=== PATIENT | male | born 1965 | race Caucasian/White ===

== ENCOUNTER 2020-09-07 07:19 | Outpatient (CLI) | payer BC, SELFPAY ==
--- NOTE | ~2020-09-07 | CT_ITS ---
EXAMINATION: CT abdomen pelvis w con DATE: 09/07/2020 08:17 INDICATION: Prostate cancer. TECHNIQUE: Computed tomography (CT) of the abdomen and pelvis was performed with 100 mL Omnipaque 350 intravenous contrast. Automated exposure control and iterative reconstruction technique were employe d. The dose-length product was 1366.92 mGy-cm. COMPARISON: None. FINDINGS: The visualized portions of the lung bases demonstrates mild atelectasis. There is a 6 mm no dule at minor fissure, likely benign. No pleural effusion. The heart size is normal. No pericardial e ffusion. There is a small sliding hiatal hernia. The liver, gallbladder, spleen, pancreas, adrenal gl ands, and right kidney are normal. There is a 1.5 cm cyst in left kidney. There is diffuse bladder wa ll thickening, likely secondary to chronic outlet obstruction from the moderately enlarged prostate. There is a left inguinal hernia containing fat. There are no dilated loops of bowel. The appendix is normal. There are no pathologically enlarged lymph nodes. There is no free intraperitoneal fluid. The re is a benign bone island in left ilium. There is moderate lumbar spondylosis. IMPRESSION: 1. No evidence of metastatic disease. Reviewed, dictated and finalized at location A.
--- NOTE | ~2020-09-07 | NM_ITS ---
EXAMINATION: NM bone scan whole body DATE: 09/07/2020 11:00 INDICATION: Prostate cancer TECHNIQUE: 25.3 mCi Tc-99m HDP was administered intravenously. Delayed whole-body scintigrams were o btained. COMPARISON: CT abdomen and pelvis dated 09/07/2020 FINDINGS: Small foci of mild likely degenerative uptake at the bilateral patellae. Mild upper thoracic dextrocu rvature. Otherwise normal distribution of bone and soft tissue uptake. IMPRESSION: 1. No evident metastatic disease. Reviewed, dictated and finalized at location A.
[2020-09-07 08:10] LABS: Estimated Glomerular Filt Rate 57
== END 2020-09-07 07:20 | disposition home or self-care (01) ==
LOC: ANHIMG 07:21
PROVIDERS: PCP Family Medicine; Visit Provider Urology
DX: C61 Malignant neoplasm of prostate (principal)
CPT/HCPCS: 74177; 78306; A9561; Q9967

== ENCOUNTER 2020-10-07 09:59 | Outpatient (CLI) | payer BC, SELFPAY ==
--- NOTE | 2020-10-07 10:40 | ECG_ITS ---
Measurements Intervals [place] Rate: 60 P: 27 OK: 170 QRS: -8 QRSD: 97 T: 35 QT: 398 QTc: 399 Interpretive Statements SINUS RHYTHM DELAYED PRECORDIAL R/S TRANSITION BORDERLINE ECG Electronically Signed On 10-07-2020 13:12:56 INTERN BRAND by Sumeet Wilder D.O.
[2020-10-07 11:11] LABS: Basophils Absolute Auto 0.1 K/mm3 (0.0-0.1); Basophils Percent Auto 0.9 % (0.2-1.2); Eosinophils Absolute Auto 0.4 K/mm3 (0-0.3); Eosinophils Percent Auto 5.8 % (0-4.4); Hematocrit 50.6 % (42.0-52.0); Hemoglobin 16.8 g/dL (14.0-18.0); Immature Granulocyte Absolute 0.04 K/mm3 (0.00-0.031); Immature Granulocyte Percent A 0.6 % (0-0.5); Lymphocytes Absolute Auto 2.33 K/mm3 (0.9-3.2); Lymphocytes Percent Auto 35.7 % (18.3-44.2); Mean Corpuscular HGB Conc 33.2 g/dl (32-36); Mean Corpuscular Hemoglobin 29.2 pg (26-34); Mean Corpuscular Volume 87.8 fl (80-100); Mean Platelet Volume 10.5 fl (7.4-10.4); Monocytes Absolute Auto 0.8 K/mm3 (0.1-0.6); Monocytes Percent Auto 11.5 % (2.6-8.5); Neutrophils Percent Auto 45.5 % (45.5-73.1); Platelet Count Result 249 k/mm3 (150-375); Red Blood Count 5.76 M/mm3 (4.6-6.20); Red Cell Distribution Width 13.5 % (11.5-14.5); White Blood Count 6.5 K/mm3 (4.5-10.0)
[2020-10-07 11:17] LABS: INR 0.9; Partial Thromboplastin Time 26.4 SECONDS (22.3-36.8); Prothrombin Time 12.5 Seconds (11.1-14.7)
[2020-10-07 11:20] LABS: Alanine Aminotransferase 21 U/L (4-50); Albumin Level 4.3 g/dL (3.5-5.1); Alkaline Phosphatase 62 U/L (38-126); Anion Gap 7 mmol/L (8-16); Aspartate Amino Transferase 22 U/L (17-59); Bilirubin,Total 0.7 mg/dL (0.2-1.3); Blood Urea Nitrogen 26 mg/dL (9-20); Calcium 9.1 mg/dL (8.4-10.2); Carbon Dioxide 29 mmol/L (22-30); Chloride 103 mmol/L (98-107); Estimated Glomerular Filt Rate > 60; Glucose 115 mg/dL (75-110); Potassium 4.3 mmol/L (3.4-5.0); Sodium 139 mmol/L (137-145)
== END 2020-10-07 10:00 | disposition home or self-care (01) ==
LOC: ANHSURGERY 10:01
PROVIDERS: PCP Family Medicine; Visit Provider Urology
DX: Z01.818 Encounter for other preprocedural examination (principal); I10 Essential (primary) hypertension; C61 Malignant neoplasm of prostate
CPT/HCPCS: 36415; 80053; 85025; 85610; 85730; 87086; 93005

== ENCOUNTER 2020-10-17 01:17 | Outpatient (CLI) | payer BC, SELFPAY ==
[2020-10-17 18:31] LABS: SARS-CoV-2 RNA PCR Negative
== END 2020-10-17 01:18 | disposition home or self-care (01) ==
LOC: ANHCOVIDDT 01:17
PROVIDERS: PCP Family Medicine; Visit Provider Urology
DX: Z01.812 Encounter for preprocedural laboratory examination (principal); Z20.828 Contact with and (suspected) exposure to other viral communicable diseases
CPT/HCPCS: 87635; C9803; U0003

== ENCOUNTER 2020-10-20 13:14 | Inpatient (IN) | payer BC, SELFPAY ==
[2020-10-07 10:40] VITALS: BP 125/71; PULSE 60; RESP 16; TEMP 36.8; O2SAT 97; BMI 30.3
--- NOTE | 2020-10-12 15:44 | PC.NURSE ---
STATES NO CHANGE IN HEALTH HX SINCE LAST INTERVIEW ON 10/05/20. NEW DATE AND TIME GIVEN
[2020-10-20] VITALS (14 sets, daily range): BP systolic 105–148; BP diastolic 61–95; PULSE 42–89; RESP 10–20; TEMP 36.3–37.4; O2SAT 94–97
[2020-10-20] MEDS: LACTATED RINGERS 1,000 ML 30 ML IV CONT ×2 (06:30→13:29)
--- NOTE | 2020-10-20 06:49 | WPDANESEPPF ---
Anes - Initial Pre Proc Eval Procedure: Operation Date: 10/20/20 07:30 Proposed Procedures p Robotic Assisted Nerve Sparing Prostatectomy, Possible Pelvic Lymph Node Dissection - Kev Pandey MD Date/Time: 10/20/20 06:49 Surgeon: Kev Pandey MD Pre Op Diagnosis: Prostate CA Patient Data Age: 55 Gender: M Height: 6 ft 4 in Weight: 114.5 kg Last Vital Signs Temp 36.8 C 10/07/20 10:40 Pulse 60 10/07/20 10:40 Resp 16 10/07/20 10:40 BP 125/71 10/07/20 10:40 Pulse Ox 97 10/07/20 10:40 Allergies Allergy/AdvReac Type Severity Reaction Status Date / Time No Known Allergies Allergy Unverified 10/20/20 06:22 Home Medications Medication Instructions Recorded Confirmed Type atenolol 50 mg PO BID 09/27/19 10/20/20 History Patient hx anesthesia problems: none Family hx anesthesia problems: none PMFSH Past Medical History Medical History (Updated 10/20/20 @ 06:50 by Alf Jacobson MD) HTN (hypertension) Obesity Surgical History Surgical History (Updated 10/20/20 @ 06:50 by Alf Jacobson MD) H/O cervical spine surgery H/O rhinoplasty Social History Social History Smoking status: Never smoker Alcohol intake: current Alcohol use details: 3 DRINKS PER MONTH Living arrangements: with family Spiritual care concerns: No Anes - Eval Final PreProcedure Day of Procedure 10/20/20 06:49 Patient weight: obese Heart: regular rate and rhythm Lungs: clear to auscultation Airway: Mallampati scale class II Neurological: alert and oriented Last oral intake: >/= 8 hours ASA classification: II Emergent: no Anesthetic plan: proceed Anesthesia type and monitoring: general ETT and standard monitoring Informed Consent: The patient's anesthetic plan and its attendant risks and benefits were discussed with the patient/family/POA. Questions were solicited and answers provided to the satisfaction of the patient/family/POA.
--- NOTE | 2020-10-20 07:04 | WPDHPUPDATE1 ---
History and Physical Update Update Date/Time: 10/20/20 07:04 History and Physical has been reviewed, including an updated exam of the patient. There are NO changes in the patient's condition. Risks, benefits, and alternatives have been discussed and questions answered. Patient agrees to proceed with procedure. Proceed with robotic assist nerve sparing prostatecomy with possible bilateral pelvic lymph node dissection
[2020-10-20] MEDS: ceFAZolin 2 GM/D5W 50 ML 2 GM/50 ML BAG IVPB (07:34)
[2020-10-20] MEDS: BUPIVACAINE HCL 0.5% PF 30 ML VIAL INFILTRATE (08:15)
[2020-10-20] MEDS: ceFAZolin SODIUM 1 GM VIAL IV PUSH (11:31)
--- NOTE | 2020-10-20 13:10 | P.OP_ITS ---
Procedure Note - Detailed Date of procedure: 10/20/20 Pre-op diagnosis: Prostate CA Post-op diagnosis: same (Significant adhesions) Procedure performed: Adhesiolysis, robotic assisted nerve-sparing prostatectomy with bilateral pelvic lymphadenectomy Description of procedure: Patient is taken to the operative suite correctly identified. Once anesthesia was obtained was placed in dorsal lithotomy position prepped and draped in sterile fashion. Eighteen [place] Ventura 20 cc in the balloon was placed. Supraumbilical incision was made carried down to the rectus fascia. Veress needle was inserted. The abdomen was insufflated 15 mmHg pressure. Camera port trocar was placed in direct vision. Appropriate ports were then placed. Patient was placed in steep Trendelenburg position and the robot was docked. Patient had significant amount of adhesions along the left pelvic floor as well as the right side. These were taken down took probably another 15-30 minutes to accomplish. We then did a posterior approach. The seminal vesicles appeared to be somewhat stuck. We were able to dissect them out in their entirety however. He was very vascular. The vas were transected. Bladder was then taken down space of Retzius was developed. Puboprostatic were then taken down also. Dorsal venous complex was isolated using an 0 Vicryl secured to the pubic bone. Anterior bladder neck was then opened to expose the Ventura catheter. Posterior bladder neck was also transected. There was a bladder neck sparing procedure performed. The seminal vesicles and vas were then brought out. Bilateral nerve-sparing was performed. Pedicles were clipped. Prostate was lifted off the rectum. Dorsal venous complex was then transected. Urethra was also transected. Specimen was placed in Endo-Catch bag. Bilateral pelvic lymphadenectomies were performed. Boundaries being the Lex's ligament, external iliac vein, bifurcation of the vessels, and obturator nerve. Clips were placed proximally and distally. These were also placed in an Endo-Catch bag. The left pelvic lymph nodes were identified using a clip. We then approximated the bladder neck to the urethral stump. This was accomplished using V lock suture in a running fashion. There was a good [id number] approximation. Eighteen [place] Ventura had been placed inflated with 10 cc sterile water. We a fill the bladder with 200 cc of normal saline there was no evidence of extravasation at this time. Pablito drain was then placed through the 3rd arm approach side. This was secured. Robot was undocked. Lap count needle count sponge counts were correct. The Endo-Catch bag was then brought out through the suprapubic incision. Rectus fascia was closed using 0 Vicryl running fashion. Subcuticular stitches were then placed. Patient is taken recovery room stable condition. Anesthesia: GETA Surgeon: Kev Pandey MD Estimated blood loss (mL): 50 Drains: Yes Packing: No Pathology: yes Complications: No immediate complications Condition: stable Disposition: PACU
[2020-10-20] MEDS: HYDROmorphone HCL INJ (*CRX) 1 MG/ML SYR 0.5 MG IV PUSH ×2 (13:58→14:20)
--- NOTE | 2020-10-20 14:49 | ADMGEN ---
This patient, [address], was admitted to 2 Medical Room 242-. Patient/family oriented to hospital policies and general routines including ID bracelet, bed and alarms, visiting hours, pain management, procedures, bathroom and other care routines, personal items, smoking policy, room service/diet, and visiting hours. Information on how to activate the Rapid Response Team has been discussed. Patient/Family are encouraged to report perceived risks to care and to ask questions if they do not understand what they are told or what they should do.
[2020-10-20] MEDS: LACTATED RINGERS 1,000 ML 125 ML IV CONT ×2 (15:07→23:08)
[2020-10-20] MEDS: KETOROLAC 30 MG/ML VIAL (*BKC) IV PUSH ×2 (15:07→21:14)
[2020-10-20] MEDS: ACETAMINOPHEN 500 MG TABLET 1000 MG PO (17:36)
[2020-10-20] MEDS: DOCUSATE SODIUM 100 MG CAPSULE PO (17:37)
[2020-10-21] VITALS (7 sets, daily range): BP systolic 106–138; BP diastolic 60–89; PULSE 71–76; RESP 17–20; TEMP 36.4–37.4; O2SAT 95–97
[2020-10-21] MEDS: KETOROLAC 30 MG/ML VIAL (*BKC) IV PUSH (03:48)
[2020-10-21 05:43] LABS: Hematocrit 41.4 % (42.0-52.0); Hemoglobin 13.8 g/dL (14.0-18.0)
[2020-10-21] MEDS: MORPHINE SULFATE (*CRX) 2 MG/ML INJ 1 MG IV PUSH (05:45)
[2020-10-21 05:54] LABS: Anion Gap 2 mmol/L (8-16); Blood Urea Nitrogen 22 mg/dL (9-20); Calcium 7.9 mg/dL (8.4-10.2); Carbon Dioxide 32 mmol/L (22-30); Chloride 101 mmol/L (98-107); Estimated CRCL calculation 92 ml/min; Estimated Glomerular Filt Rate > 60; Glucose 111 mg/dL (75-110); Potassium 3.7 mmol/L (3.4-5.0); Sodium 135 mmol/L (137-145)
[2020-10-21] MEDS: LACTATED RINGERS 1,000 ML 125 ML IV CONT ×3 (07:30→22:04)
[2020-10-21] MEDS: DOCUSATE SODIUM 100 MG CAPSULE PO ×2 (08:26→16:49)
[2020-10-21] MEDS: ACETAMINOPHEN 500 MG TABLET 1000 MG PO ×2 (08:35→22:08)
--- NOTE | 2020-10-21 11:20 | WPDANESPN ---
Anes - Prog Note Post-Op Date/Time: 10/21/20 11:20 Cardiovascular status: normal Respiratory status: normal Airway patency: baseline Mental status: baseline Post-Op hydration status: normal Vital Signs: Last Vital Signs Temp 37.2 C 10/21/20 06:45 Pulse 71 10/21/20 06:45 Resp 20 10/21/20 06:45 BP 116/60 10/21/20 06:45 Pulse Ox 97 10/21/20 06:45 Pain Score (VAS): 5 I/O: Intake & Output 10/20/20 10/21/20 10/21/20 23:59 07:59 15:59 Intake Total 1930 1390 480 Output Total 400 860 Balance 1530 530 480 Laboratory Tests 10/21/20 05:04 10/21/20 05:04 10/21/20 10/21/20 05:04 05:04 Hgb 13.8 L D Hct 41.4 L Sodium 135 L Potassium 3.7 Chloride 101 Carbon Dioxide 32 H Anion Gap 2 L BUN 22 H Creatinine 1.10 Estim Creat Clear Calc 92 Estimated GFR > 60 Glucose 111 H Calcium 7.9 L Post-procedural complaints: none Patient Feedback: Patient satisfied with anesthetic care.
[2020-10-21] MEDS: HYDROcodone/acetaminophen (*CRX) 5-325 MG TABLET 1 TAB PO (12:04)
--- NOTE | 2020-10-21 13:37 | WPDUROPN2 ---
Progress Note: A&P Assessment and Plan (1) Prostate cancer: Code(s): C61 - Malignant neoplasm of prostate Status: Acute Assessment and Plan: Plan to keep overnight for pain control. Encourage activity. Will plan to discharge home tomorrow as long as he is better, if BERNADETTE drain is decreasing in output, will remove tomorrow. Ventura will remain in for 10 days total until cystogram. Subjective Subjective Date/Time Seen: 10/21/20 13:37 POD #1 Adhesiolysis, robotic assisted nerve-sparing prostatectomy with bilateral pelvic lymphadenectomy Pain control remains an issue for him. He is otherwise doing well, but c/o constipation. Review of Systems Cardiovascular: Cardiovascular: Reports no additional cardiovascular complaints Respiratory: Respiratory: Reports no additional respiratory complaints Gastrointestinal: Gastrointestinal: Reports abdominal pain (at incisons), Denies nausea and Denies vomiting Genitourinary: Genitourinary: Denies hematuria and Denies flank pain Exam Resp: Effort & Inspection: normal respiratory effort Cardio: Rate: regular rate GI: Inspection: incision (BERNADETTE drain, draining bloody drainage, no edema) GI Palp: Yes Soft to palpation and Yes Tenderness to palpation present (GI) (At incisions, no drainage from incisions, well approximated) : General: Yes no CVA tenderness Urinary Catheter: Urinary Catheter: patent and draining and urine clear Extrem: General: no edema Objective Data Vital Signs Vital Signs: Vital Signs - 24 hr 10/20/20 13:40 10/20/20 13:55 10/20/20 14:10 Temperature Pulse Rate 89 81 77 Respiratory Rate 12 14 12 Blood Pressure 146/90 H 148/93 H 138/82 Pulse Oximetry 96 97 95 10/20/20 14:25 10/20/20 14:53 10/20/20 14:59 Temperature 98.0 F 98.2 F Pulse Rate 76 76 82 Respiratory Rate 10 L 16 18 Blood Pressure 137/84 143/77 H 146/81 H Pulse Oximetry 97 96 97 10/20/20 15:15 10/20/20 15:17 10/20/20 18:00 Temperature 98.1 F 98.8 F Pulse Rate 85 86 Respiratory Rate 18 18 Blood Pressure 127/78 105/67 Pulse Oximetry 95 96 94 10/20/20 18:59 10/20/20 22:59 10/20/20 23:43 Temperature 99.4 F 99.4 F 99.2 F Pulse Rate 42 L 76 Respiratory Rate 20 20 Blood Pressure 112/61 112/61 Pulse Oximetry 94 94 10/21/20 02:59 10/21/20 06:45 10/21/20 10:59 Temperature 99.0 F 99 F 97.6 F Pulse Rate 71 71 76 Respiratory Rate 20 20 17 Blood Pressure 116/60 116/60 108/74 Pulse Oximetry 97 97 97 Intake/Output Intake/Output: Intake & Output 10/18/20 10/19/20 10/20/20 10/21/20 23:59 23:59 23:59 23:59 Intake Total 2180 1870 Output Total 520 860 Balance 1660 1010 Meds/Results Medications: Active Medications Generic Name Dose Route Start Last Admin Trade Name Freq PRN Reason Stop Dose Admin Acetaminophen 1,000 mg 10/20/20 15:55 10/21/20 08:35 Acetaminophen 500 Mg Tablet PO 1,000 mg Q6H PRN Administration Mild Pain (1-3) or Fever Hydrocodone Bitart/Acetaminophen 1 tab 10/21/20 10:57 10/21/20 12:04 Hydrocodone/Acetaminophen (*Crx) 5-325 Mg Tablet PO 1 tab Q6H PRN Administration Pain Rated 7-10 Atenolol 50 mg 10/21/20 11:55 Atenolol 50 Mg Tablet PO Q12HR [facility] Docusate Sodium 100 mg 10/20/20 17:00 10/21/20 08:26 Docusate Sodium 100 Mg Capsule PO 100 mg BID VIVIENNE Administration Hyoscyamine 0.125 mg 10/20/20 14:31 Hyoscyamine Sulfate 0.125 Mg Tablet SUBLINGUAL Q4H PRN Bladder Spasm Lactated Ringer's 1,000 mls @ 125 mls/hr 10/20/20 13:15 10/21/20 07:30 Lr - Lactated Ringers Iv IV CONT 125 mls/hr .Q8H VIVIENNE Administration Ketorolac Tromethamine 30 mg 10/20/20 14:31 10/21/20 03:48 Ketorolac 30 Mg/Ml Vial (*Bkc) IV PUSH 10/21/20 14:32 30 mg Q6H PRN Administration Pain Rated 4-6 Levofloxacin 500 mg 10/21/20 09:00 10/21/20 08:27 Levofloxacin Tab 500 Mg Tablet PO 500 mg DAILY VIVIENNE Administration Naloxone HCl 0.1 mg 10/20/20 13:14
[2020-10-21] MEDS: atenoloL 50 MG TABLET PO ×2 (14:46→22:00)
[2020-10-21] MEDS: HYOSCYAMINE SULFATE 0.125 MG TABLET SUBLINGUAL (18:48)
[2020-10-22 04:00] VITALS: BP 141/77; PULSE 81; RESP 18; TEMP 37.2; O2SAT 94
[2020-10-22] MEDS: ACETAMINOPHEN 500 MG TABLET 1000 MG PO (06:19)
[2020-10-22] MEDS: LACTATED RINGERS 1,000 ML 125 ML IV CONT (06:23)
[2020-10-22 08:28] VITALS: PULSE 81
[2020-10-22] MEDS: atenoloL 50 MG TABLET PO (08:28)
[2020-10-22] MEDS: DOCUSATE SODIUM 100 MG CAPSULE PO (08:28)
--- NOTE | 2020-10-22 09:00 | WPDUROPN2 ---
Progress Note: A&P Assessment and Plan (1) Prostate cancer: Code(s): C61 - Malignant neoplasm of prostate Status: Acute Assessment and Plan: Patient is much improved today, he will go home with vega catheter. His BERNADETTE drain will be removed prior to discharge. Subjective Subjective Date/Time Seen: 10/22/20 09:00 POD #2 Adhesiolysis, robotic assisted nerve-sparing prostatectomy with bilateral pelvic lymphadenectomy Pain is under great control today, he rates it as a 2. He is up in the chair and looks much better. He is otherwise doing well, but c/o constipation,but passing flatus. Review of Systems Cardiovascular: Cardiovascular: Denies chest pain Respiratory: Respiratory: Reports no additional respiratory complaints Gastrointestinal: Gastrointestinal: Reports abdominal pain (improved), Denies nausea and Denies vomiting Genitourinary: Genitourinary: Denies hematuria Exam Resp: Effort & Inspection: normal respiratory effort Cardio: Rate: regular rate GI: Inspection: incision (well approximated, no drainage or edema present, BERNADETTE draining bloody drainag) GI Palp: Yes abdominal tenderness (at incision sites only), Yes Soft to palpation and No Firmness to palpation present (GI) : Meatus: Blood at meatus present (old blood around vega.) Urinary Catheter: Urinary Catheter: patent and draining and urine clear Extrem: General: no edema Objective Data Vital Signs Vital Signs: Vital Signs - 24 hr 10/21/20 10:59 10/21/20 14:46 10/21/20 14:59 Temperature 97.6 F 97.5 F L Pulse Rate 76 76 76 Respiratory Rate 17 18 Blood Pressure 108/74 106/89 Pulse Oximetry 97 97 10/21/20 20:00 10/21/20 22:00 10/22/20 04:00 Temperature 99.3 F 98.9 F Pulse Rate 76 76 81 Respiratory Rate 20 18 Blood Pressure 138/76 141/77 H Pulse Oximetry 95 94 10/22/20 08:28 Temperature Pulse Rate 81 Respiratory Rate Blood Pressure Pulse Oximetry Intake/Output Intake/Output: Intake & Output 10/19/20 10/20/20 10/21/20 10/22/20 23:59 23:59 23:59 23:59 Intake Total 2180 5450 1000 Output Total 520 3550 40 Balance 1660 1900 960 Meds/Results Medications: Active Medications Generic Name Dose Route Start Last Admin Trade Name Freq PRN Reason Stop Dose Admin Acetaminophen 1,000 mg 10/20/20 15:55 10/22/20 06:19 Acetaminophen 500 Mg Tablet PO 1,000 mg Q6H PRN Administration Mild Pain (1-3) or Fever Hydrocodone Bitart/Acetaminophen 1 tab 10/21/20 10:57 10/21/20 12:04 Hydrocodone/Acetaminophen (*Crx) 5-325 Mg Tablet PO 1 tab Q6H PRN Administration Pain Rated 7-10 Atenolol 50 mg 10/21/20 11:55 10/22/20 08:28 Atenolol 50 Mg Tablet PO 50 mg Q12HR VIVIENNE Administration Docusate Sodium 100 mg 10/20/20 17:00 10/22/20 08:28 Docusate Sodium 100 Mg Capsule PO 100 mg BID VIVIENNE Administration Hyoscyamine 0.125 mg 10/20/20 14:31 10/21/20 18:48 Hyoscyamine Sulfate 0.125 Mg Tablet SUBLINGUAL 0.125 mg Q4H PRN Administration Bladder Spasm Lactated Ringer's 1,000 mls @ 125 mls/hr 10/20/20 13:15 10/22/20 06:23 Lr - Lactated Ringers Iv IV CONT 125 mls/hr .Q8H VIVIENNE Administration Levofloxacin 500 mg 10/21/20 09:00 10/22/20 08:28 Levofloxacin Tab 500 Mg Tablet PO 500 mg DAILY VIVIENNE Administration Naloxone HCl 0.1 mg 10/20/20 13:14 Naloxone Hcl 0.4 Mg/Ml Vial IV PUSH Q2M PRN Opiate Reversal Ondansetron HCl 4 mg 10/20/20 13:14 Ondansetron Inj 4 Mg/2 Ml Vial IV PUSH Q6H PRN Nausea And Vomiting
--- NOTE | 2020-10-22 09:08 | P.DS_ITS ---
DS: Admitting Diagnosis Admitting Diagnosis Admitting Diagnosis: Prostate CA DS: Summary Time Spent with Patient Time attestation: Pre-Op Diagnosis: Prostate Cancer Post - Op Diagnosis: Prostate Cancer Patient underwent the following procedure: Adhesiolysis, robotic assisted nerve- sparing prostatectomy with bilateral pelvic lymphadenectomy, on 10/20/[address] Pandey. He tolerated the procedure well, then went to Recovery in stable condition and to the floor for further observation. He had difficulty managing pain on his first post operative day, however this morning his pain has improved greatly, he is increasing his activity and tolerating diet. He will go home with diet as tolerated, activity no straining, resume home medications and start Bactrim daily, Hydrocodone for pain PRN, Colace to prevent constipation and Levsin for bladder spasms PRN. He will have his drain removed and go home with his vega until after his Cystogram next week. DS: Data Data Completed and Pending Pending studies at discharge: Pending at discharge 10/20/20 11:46 Surgical [PTH] Routine Discharge Plan Discharge Attending physician on discharge: Kev Pandey Discharging Clinician: Lori Harrison Anticipated Discharge Date/Time: 10/22/20 09:04 Patient Disposition: Home, Self-Care Activity: may shower, no straining and may drive after 2 weeks Diet: as tolerated Wound Care Instructions: change dressing daily and incision open to air Discharge Instructions: Change drain site dressing daily and PRN if draining bloody drainage. Follow up for Cystogram on 10/28/2020 at 9am, arrive at 8:30am. Then come to the office immediately after for vega removal as long as cystogram is normal. Call if you develop a fever >102, urine turns bloody, cloudy or develops an odor, if incisions are red, painful or draining. Patient Instructions: Antibiotic Form Stand Alone Forms: General Discharge Information Follow-up/Referrals: Kev Pandey MD [Physician] - Discharge Medications: New docusate sodium 100 mg Capsule 100 mg PO BID Qty: 20 RF: 0 hydrocodone-acetaminophen 5-325 mg Tablet 1 tab PO Q6H PRN (Reason: Pain Rated 7-10) 5 Days Qty: 20 RF: 0 hyoscyamine sulfate [Anaspaz] 0.125 mg Tablet,Disintegrating 0.125 mg sublingual Q4H PRN (Reason: Bladder Spasm) 5 Days Qty: 20 RF: 0 sulfamethoxazole-trimethoprim [Bactrim DS] 800-160 mg tablet 1 tablet PO DAILY Qty: 7 RF: 0 Continued atenolol 50 mg Tablet 50 mg PO BID RF: 0 Date of admission: 10/20/20 13:14 Primary Care Provider: Phylicia,Brennon Meza Admitting Provider: Kev Pandey Attending physician on admission: Kev Pandey
== END 2020-10-22 11:40 | disposition home or self-care (01) | DRG 708 ==
LOC: ANH2MED 10-22 09:08
PROVIDERS: Admitting Provider Urology; PCP Family Medicine; Visit Provider Nurse Practitioner Adult Health
PROC: 0VT04ZZ Resection of Prostate, Percutaneous Endoscopic Approach (ICD-10-PCS; CPT 55867; principal; 2020-10-20 07:30)
DX: C61 Malignant neoplasm of prostate (principal); I10 Essential (primary) hypertension; E66.9 Obesity, unspecified; Z68.30 Body mass index [BMI] 30.0-30.9, adult
CPT/HCPCS: 36415; 80048; 85014; 85018; 86850; 86900; 86901; 88305; 88307; 88309; 88342; A9270; J0131; J0330; J0690; J1100; J1170; J1200; J1885; J2250; J2270; J2405; J2704; J2710; J3010; J7030; J7120; Q9968

== ENCOUNTER 2020-10-28 08:23 | Outpatient (CLI) | payer BC, SELFPAY ==
--- NOTE | ~2020-10-28 | XR_ITS ---
XR cystogram DATE: 10/28/2020 09:24 INDICATION: Status post prostatectomy TECHNIQUE: DAP: 66.868 Fluoroscopy time: 1.7 minutes 12 images 350 cc Omnipaque 350 contrast material was allowed through the existing Ventura catheter by gravity, un izabella fluoroscopic visualization COMPARISON: None FINDINGS: The bladder comminuted 350 cc contrast material. No filling defect of the urinary bladder o ther than the Ventura catheter. No extravasation of contrast material from the urinary bladder lumen. N o vesicoureteral reflux. IMPRESSION: No extravasation or vesicoureteral reflux. Reviewed, dictated and finalized at [facility]. Reviewed, dictated and finalized at location A. NSED PHARMACIST
== END 2020-10-28 08:24 | disposition home or self-care (01) ==
LOC: ANHIMG 08:26
PROVIDERS: PCP Family Medicine; Visit Provider Urology
DX: C61 Malignant neoplasm of prostate (principal)
CPT/HCPCS: 51600; 74430; Q9967

== ENCOUNTER 2021-04-18 09:07 | Emergency (ER) | payer BC, SELFPAY ==
[2021-04-18 09:12] VITALS: BP 143/72; PULSE 79; RESP 16; TEMP 36.9; O2SAT 98
--- NOTE | 2021-04-18 09:34 | ED.URI ---
HPI - URI/Sore Throat General Chief Complaint: Unspecified Stated Complaint: headache,fever,chills,sweats Time Seen by Provider: 04/18/21 09:30 Source: patient, RN notes reviewed and old records reviewed Mode of arrival: ambulatory Limitations: no limitations History of Present Illness HPI Narrative: 55 year old male who presents to [facility] care with 3 day history of headache, body aches, has felt feverish with chills and sweats, right ear pain and nasal stuffiness with nasal drainage. Patient states that he did have the [employer] Covid vaccine in February states concern of COVID even though has had vaccine. Patient denies any cough or any shortness of breath. Patient states that he called off work on Monday due to his symptoms. Patient states that he has history of sinus infections in the past. MD elicited complaint: fever (felt feverish with chills and sweats), rhinorrhea, nasal congestion and other (headache) Pertinent past history: sinusitis Onset (ago): day(s) (3) Consistency: constant Severity: moderate Pain scale (0-10): 5 Description of mucous: clear Able to tolerate fluids by mouth: Yes Relieving factors: nothing Associated symptoms: fever (has felt feverish), chills, myalgias, headache, rhinorrhea, nasal congestion, ear pain (right) and other (body aches) Treatments prior to arrival: acetaminophen Related Data Home Medications Medication Instructions Recorded Confirmed atenolol 50 mg PO BID 09/27/19 04/18/21 Allergies Allergy/AdvReac Type Severity Reaction Status Date / Time No Known Allergies Allergy Verified 01/28/21 08:34 Review of Systems Review of Systems: Narrative: CONSTITUTIONAL: States that he has felt feverish, with chills, or sweats. EYES: Denies visual changes, redness, or discharge. ENT: Positive rhinorrhea, congestion, no sore throat, right ear otalgia. CARDIOVASCULAR: Denies chest pain, palpitations, or edema. RESPIRATORY: occasional cough denies dyspnea. GASTROINTESTINAL: Denies abdominal pain, nausea, vomiting, or diarrhea. GENITOURINARY: Denies dysuria or hematuria. SKIN: Denies rash or itching. MUSCULOSKELETAL: Denies back pain, joint pain, positive for generalized body aches NEUROLOGIC: Positive headache, no complaints of numbness, or weakness. PSYCHIATRIC: Denies anxiety or depression. All systems reviewed & are unremarkable except as noted in HPI and below PMFSH Past Medical History Medical History (Updated 04/18/21 @ 14:13 by Elizabeth Vaughn NP) HTN (hypertension) Nasal fracture Obesity Prostate cancer Thyroid goiter removed from thyroid Surgical History Surgical History (Updated 04/18/21 @ 14:13 by Elizabeth Vaughn NP) H/O cervical spine surgery H/O rhinoplasty History of robot-assisted laparoscopic radical prostatectomy Family History Family History Father Heart disease Hypertension Sibling Hypertension Grandparent Breast cancer Social History Social History Smoking status: Never smoker Alcohol intake: current Drinks per week: 1 Substance use: never Substance use type: does not use Spiritual care concerns: No Exam Narrative: Exam Narrative: GENERAL: Well-appearing, well-nourished, and in no acute distress. HEAD: Normocephalic, atraumatic. EYES: PERRLA and EOMI. ENT: Nares red swollen with clear rhinorrhea no epistaxis headache and facial pressure complaints, Mucous membranes moist. TM's normal with dull light reflex right ear, left TM normal. Throat red with white patches noted denies any sore throat, post nasal drainage noted. NECK: Supple.no lymphadenopathy CHEST: Clear to auscultation. No respiratory distress.SAO2 98% on room air HEART: Regular rate and rhythm. No murmur heard. Normal peripheral pulses. ABDOMEN: Soft, nontender, nondistended, normal active bowel sounds. EXTREMITIES: Normal range of motion. No edema. SKI
[2021-04-18 09:40] VITALS: BP 143/72; PULSE 79; RESP 16; TEMP 36.9; O2SAT 98
== END 2021-04-18 10:10 | disposition home or self-care (01) ==
PROVIDERS: Emergency Provider Registered Nurse; PCP Family Medicine
DX: J32.9 Chronic sinusitis, unspecified (principal); Z20.822 Contact with and (suspected) exposure to COVID-19; I10 Essential (primary) hypertension; Z85.46 Personal history of malignant neoplasm of prostate
CPT/HCPCS: 87081; 87426; 87804; 87880; 99213; C9803; G0463

== ENCOUNTER 2022-05-10 14:35 | Emergency (ER) | payer OTHER, BC, SELFPAY ==
--- NOTE | ~2022-05-10 | CT_ITS ---
EXAMINATION: CT cervical spine wo con DATE: 05/10/2022 15:20 INDICATION: Fall with head injury TECHNIQUE: Computed tomography (CT) of the cervical spine was performed without intravenous contrast. Automated exposure control and iterative reconstruction technique were employed. The dose-length pro duct was 392.91 mGy-cm. COMPARISON: None FINDINGS: C6-C7 anterior spinal fusion with anterior plate and screw fixation. Bone alignment is normal. Verteb ral body heights are normal. Mild disc height loss at C4-C5, C5-C6 and T1-T2. Status post right thyro idectomy. Cervical soft tissues are otherwise unremarkable. Visualized apices of lungs are clear. The following disc levels are specifically discussed: C2-C3: Disc is bulging. There is mild bilateral uncovertebral joint osteoarthritis. There is mild to moderate bilateral facet joint osteoarthritis. There is no neural foraminal stenosis. There is mild c entral canal stenosis. C3-C4: Disc is minimally bulging. There is mild left and mild to moderate right uncovertebral joint o steoarthritis. There is mild bilateral facet joint osteoarthritis. There is no neural foraminal steno sis. There is no central canal stenosis. C4-C5: Left side predominant posterior disc osteophyte complex. There is moderate right and mild to m oderate left uncovertebral joint osteoarthritis. There is mild bilateral facet joint osteoarthritis. There is mild neural foraminal stenosis. There is no central canal stenosis. C5-C6: Posterior disc osteophyte complex. There is moderate bilateral uncovertebral joint osteoarthri tis. There is mild left and moderate right facet joint osteoarthritis. There is mild bilateral neural foraminal stenosis. There is mild central canal stenosis. C6-C7: HYPERTROPHIC change along the posterior margin of diffuse disc space. There is mild bilateral facet joint osteoarthritis. There is minimal bilateral neural foraminal stenosis. There is mild centr al canal stenosis. C7-T1: The disc does not extend beyond the endplate margin. There is minimal bilateral uncovertebral joint osteoarthritis. There is mild right and moderate to severe left facet joint osteoarthritis. The re is minimal left neural foraminal stenosis. There is no central canal stenosis. IMPRESSION: 1. Moderate cervical spondylosis with instrumented C6-C7 anterior spinal fusion. No acute osseous abn ormality. Reviewed, dictated and finalized at location B. IMPRESSION: 1. Moderate cervical spondylosis with instrumented C6-C7 anterior spinal fusion . No acute osseous abnormality.
--- NOTE | ~2022-05-10 | CT_ITS ---
EXAMINATION: CT brain wo con DATE: 05/10/2022 15:20 INDICATION: Head injury TECHNIQUE: Computed tomography (CT) of the head was performed without intravenous contrast. Sagittal and coronal reconstructions were performed. The mA was adjusted according to patient size. Iterative reconstruction technique was employed. The dose-length product was 681.00 mGy-cm. COMPARISON: None FINDINGS: No fracture. No acute intracranial hemorrhage, acute infarction or abnormal extra axial fluid collect ion. Ventricles are normal and symmetric. No mass/mass effect. Mucosal thickening the bilateral ethmo id sinuses. The orbits and mastoid air cells are normal. IMPRESSION: 1. No fracture or acute intracranial process. Reviewed, dictated and finalized at location B.
--- NOTE | ~2022-05-10 | CT_ITS ---
EXAMINATION: CT lumbar spine wo con DATE: 05/10/2022 15:20 INDICATION: back pain s/p fall . TECHNIQUE: Computed tomography (CT) of the lumbar spine was performed without intravenous contrast. A utomated exposure control and iterative reconstruction technique were employed. The dose-length produ ct was 1201.45 mGy-cm. COMPARISON: None. FINDINGS: 5 nonrib-bearing lumbar-type vertebral bodies. Pedicles intact. No fracture. Normal vertebr al body alignment. Scattered subcentimeter lesions, for instance in L4, S1, in the right iliac bone. Vertebral body heights preserved. Multilevel mild and moderate disc space narrowing with marginal ost eophyte formation. Multilevel facet sclerosis and hypertrophy, with multilevel interspinous narrowing . IMPRESSION: 1. No acute fracture or traumatic malalignment in the lumbar spine. 2. Scattered small lytic lesions, may reflect multiple myeloma or other metastatic disease. Correlate with history of primary malignancy. Nonemergent, outpatient bone scan may be helpful for further leela luation. Reviewed, dictated and finalized at location K. IMPRESSION: 1. No acute fracture or traumatic malalignment in the lumbar spine. 2. Scattered small lytic lesions, may reflect multiple myeloma or other metasta tic disease. Correlate with history of primary malignancy. Nonemergent, outpati ent bone scan may be helpful for further evaluation.
[2022-05-10 14:36] VITALS: BP 140/83; PULSE 66; RESP 18; O2SAT 93
--- NOTE | 2022-05-10 14:50 | ED.FALL ---
HPI - Fall General Chief Complaint: Fall Stated Complaint: fall of semi truck trailer Time Seen by Provider: 05/10/22 14:37 History of Present Illness HPI Narrative: 56-year-old male presents to the emergency room for evaluation of multiple injuries status post fall. 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 Patient states that he landed in a sitting position and then fell backwards striking the back of his head. Patient denies any loss of consciousness or altered mental status following the event. Patient reports he was experiencing some midline cervical spine tenderness and lower back pain. Patient has a history of cervical fusion of C5-C6. Patient states that he was able to drive himself from the scene of the incident to hospital, which is approximately 90 to 100 miles. Related Data Home Medications Medication Instructions Recorded Confirmed atenolol 50 mg tablet 50 mg PO BID 09/27/19 04/18/21 Allergies Allergy/AdvReac Type Severity Reaction Status Date / Time No Known Allergies Allergy Verified 05/10/22 14:41 Review of Systems Review of Systems: CONSTITUTIONAL: Denies fever, chills, or sweats. EYES: Denies visual changes, redness, or discharge. ENT: Denies rhinorrhea, congestion, sore throat, or otalgia. CARDIOVASCULAR: Denies chest pain, palpitations, or edema. RESPIRATORY: Denies cough or dyspnea. GASTROINTESTINAL: Denies abdominal pain, nausea, vomiting, or diarrhea. GENITOURINARY: Denies dysuria or hematuria. SKIN: Denies rash or itching. MUSCULOSKELETAL: Reports head, neck, low back pain NEUROLOGIC: Denies headache, numbness, dizziness, or weakness. PSYCHIATRIC: Denies anxiety or depression. [facility] Past Medical History Medical History HTN (hypertension) Nasal fracture Obesity Prostate cancer Thyroid goiter removed from thyroid Surgical History Surgical History H/O cervical spine surgery H/O rhinoplasty History of robot-assisted laparoscopic radical prostatectomy Family History Family History Father Heart disease Hypertension Sibling Hypertension Grandparent Breast cancer Social History Social History Smoking status: Never smoker Alcohol intake: current Drinks per week: 1 Alcohol use details: 3 DRINKS PER MONTH Substance use: never Substance use type: does not use Spiritual care concerns: No Exam Narrative: GENERAL: Well-appearing, well-nourished, and in no acute distress. HEAD: Normocephalic, atraumatic. EYES: PERRLA and EOMI. ENT: Nares clear, no rhinorrhea or epistaxis. Mucous membranes moist. Oropharynx without tonsillar hypertrophy exudate or other lesions. Bilateral TMs pearly pacheco nonbulging NECK: Supple. No adenopathy or masses. No carotid bruits or JVD CHEST: Clear to auscultation. No respiratory distress. No wheezes rales or rhonchi HEART: Regular rate and rhythm. No murmur heard. Normal peripheral pulses. ABDOMEN: Soft, nontender, nondistended, normal active bowel sounds. EXTREMITIES: Normal range of motion. No edema. BACK: Midline tenderness to C5 and C6, no step-offs, range of motion not evaluated due to c-collar in place. Tenderness over the bilateral thoracolumbar fascia, no obvious bony abnormality SKIN: Warm, dry, no rash. NEURO: No focal deficits. Alert and oriented x3. PSYCH: Normal mood and affect. Course Vital Signs Vital signs: Vital Signs Pulse Rate 66 05/10/22 14:36 Respiratory Rate 18 05/10/22 14:36 Blood Pressure 140/83 05/10/22 14:36 Pulse Oximetry 93 05/10/22 14:36 Oxygen Delivery Room Air 05/10/22 14:36 Pulse Rate 66 05/10/22 14:36 Respiratory Rate 18 05/10/22 1
== END 2022-05-10 16:53 | disposition home or self-care (01) ==
PROVIDERS: Emergency Provider Nurse Practitioner Family; PCP Family Medicine
DX: S09.90XA Unspecified injury of head, initial encounter (principal); S16.1XXA Strain of muscle, fascia and tendon at neck level, initial encounter; S30.0XXA Contusion of lower back and pelvis, initial encounter; I10 Essential (primary) hypertension; E66.9 Obesity, unspecified; Z68.33 Body mass index [BMI] 33.0-33.9, adult; Z85.46 Personal history of malignant neoplasm of prostate; Z90.79 Acquired absence of other genital organ(s); M47.812 Spondylosis without myelopathy or radiculopathy, cervical region; M89.9 Disorder of bone, unspecified; W17.89XA Other fall from one level to another, initial encounter
CPT/HCPCS: 70450; 72125; 72131; 99284

== ENCOUNTER 2022-07-03 13:26 | Emergency (ER) | payer BC, SELFPAY ==
--- NOTE | ~2022-07-03 | XR_ITS ---
EXAMINATION: XR elbow LT min 3V DATE: 07/03/2022 13:53 INDICATION: Left elbow pain TECHNIQUE: Anteroposterior, two oblique and lateral views of the left elbow were obtained. COMPARISON: None. FINDINGS: Bone alignment is normal. There is no fracture. There is mild osteoarthritis of the elbow. Soft tissue swelling seen posteriorly overlying the olecranon. IMPRESSION: 1. Soft tissue swelling without acute osseous abnormality. Reviewed, dictated and finalized at location A.
[2022-07-03 13:32] VITALS: BP 138/76; PULSE 74; RESP 20; TEMP 36.3; O2SAT 97
[2022-07-03 13:46] VITALS: BP 138/76; PULSE 74; RESP 20; TEMP 36.3; O2SAT 97
--- NOTE | 2022-07-03 13:59 | ED.GENADULT ---
HPI - General Adult General Chief complaint: Extremity Injury, Upper Stated complaint: Left Elbow Injury Source: patient Mode of arrival: ambulatory Limitations: no limitations History of Present Illness HPI narrative: Patient presents for evaluation of left elbow pain and swelling for last month. He indicates he fell off of a tractor trailer, landed on his buttocks, and then fell back and hit his head. He has a Workmen's Compensation case for this event. He states he had imaging studies of his head and spine. He informed him that he was having left elbow pain and swelling but no imaging was performed. He rates his pain. Of 10 in severity. He denies loss of range of motion. 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 He is not taking any medication for his symptoms. He is right hand dominant. No additional complaints or concerns Related Data Home Medications Medication Instructions Recorded Confirmed atenolol 50 mg tablet 50 mg PO DAILY 09/27/19 07/03/22 atorvastatin 20 mg tablet 20 mg PO DAILY 07/03/22 07/03/22 Allergies Allergy/AdvReac Type Severity Reaction Status Date / Time No Known Allergies Allergy Verified 07/03/22 13:44 Review of Systems Review of Systems: CONSTITUTIONAL: Denies fever, chills, or sweats. EYES: Denies visual changes, redness, or discharge. ENT: Denies rhinorrhea, congestion, sore throat, or otalgia. CARDIOVASCULAR: Denies chest pain, palpitations, or edema. RESPIRATORY: Denies cough or dyspnea. GASTROINTESTINAL: Denies abdominal pain, nausea, vomiting, or diarrhea. GENITOURINARY: Denies dysuria or hematuria. SKIN: Denies rash or itching. MUSCULOSKELETAL: Reports left elbow pain and swelling. Denies back pain NEUROLOGIC: Denies headache, numbness, dizziness, or weakness. PSYCHIATRIC: Denies anxiety or depression. [facility] Past Medical History Medical History HTN (hypertension) Nasal fracture Obesity Prostate cancer Thyroid goiter removed from thyroid Surgical History Surgical History H/O cervical spine surgery H/O rhinoplasty History of robot-assisted laparoscopic radical prostatectomy Family History Family History Father Heart disease Hypertension Sibling Hypertension Grandparent Breast cancer Social History Social History Smoking status: Never smoker Alcohol intake: current Drinks per week: 1 Alcohol use details: 3 DRINKS PER MONTH Substance use: never Substance use type: does not use Spiritual care concerns: No Exam Narrative: GENERAL: Well-appearing, well-nourished, and in no acute distress. HEAD: Normocephalic, atraumatic. EYES: PERRLA and EOMI. ENT: Nares clear, no rhinorrhea or epistaxis. Mucous membranes moist. Oropharynx without tonsillar hypertrophy exudate or other lesions. Bilateral TMs pearly pacheco nonbulging NECK: Supple. No adenopathy or masses. No carotid bruits or JVD CHEST: Clear to auscultation. No respiratory distress. No wheezes rales or rhonchi HEART: Regular rate and rhythm. No murmur heard. Normal peripheral pulses. ABDOMEN: Soft, nontender, nondistended, normal active bowel sounds. EXTREMITIES: Normal range of motion. There is swelling noted to left elbow. There is tenderness noted in left elbow. 5/5 handgrip strength bilaterally. There is 5/5 gross strength against resistance with flexion of left elbow. SKIN: Warm, dry, no rash. NEURO: No focal deficits. Alert and oriented x3. PSYCH: Normal mood and affect. Course Course Emergency Course: This is a 57-year-old male who presented for evaluation of left elbow pain. X-ray was negative for fracture. He has swelling in that region which is consistent with bursitis. Advised NSAIDs. Adv
== END 2022-07-03 14:28 | disposition home or self-care (01) ==
PROVIDERS: Emergency Provider Nurse Practitioner; PCP Family Medicine
DX: M70.32 Other bursitis of elbow, left elbow (principal); I10 Essential (primary) hypertension; E66.9 Obesity, unspecified; Z68.32 Body mass index [BMI] 32.0-32.9, adult
CPT/HCPCS: 73080; 99213; G0463

== ENCOUNTER 2022-07-08 16:25 | Outpatient (CLI) | payer BC, SELFPAY ==
--- NOTE | ~2022-07-08 | MR_ITS ---
EXAMINATION: MR pelvis wo/w con DATE: 07/08/2022 17:28 INDICATION: Malignant neoplasm of prostate. TECHNIQUE: Magnetic resonance imaging (MRI) of the pelvis was performed without and with 20 mL MultiH ance intravenous contrast. COMPARISON: CT abdomen and pelvis 09/07/2020, lumbar spine CT 05/10/2022 FINDINGS: There is a left inguinal hernia containing nonobstructed sigmoid colon. There is a right inguinal her kavin containing fat. There are changes of prostatectomy. There are no pathologically enlarged lymph no sarah. There is no free intraperitoneal fluid. IMPRESSION: 1. No evidence of metastatic disease. 2. Left inguinal hernia containing nonobstructed sigmoid colon. 3. Right inguinal hernia containing fat. Reviewed, dictated and finalized at location A.
== END 2022-07-08 16:26 | disposition home or self-care (01) ==
PROVIDERS: PCP Family Medicine; Visit Provider Radiology Radiation Oncology
DX: C61 Malignant neoplasm of prostate (principal); K40.20 Bilateral inguinal hernia, without obstruction or gangrene, not specified as recurrent
CPT/HCPCS: 72197; A9577

== ENCOUNTER 2024-04-16 17:59 | Emergency (ER) | payer OTHER, SELFPAY ==
[2024-04-16 18:12] VITALS: BP 128/82; PULSE 71; RESP 20; TEMP 36.6; O2SAT 97
--- NOTE | 2024-04-16 18:17 | ED.MALEGU ---
HPI - Male Genitourinary General Chief complaint: Urogenital-Male Stated complaint: TESTICLE PAIN Time Seen by Provider: 04/16/24 18:17 Source: patient, RN notes reviewed and old records reviewed Mode of arrival: ambulatory Limitations: no limitations History of Present Illness HPI Narrative: 58-year-old male presents to the [facility] with 1 week history of bilateral testicular pain. Swelling and increased pain to the left today. Patient denies any issues with urination Has a history of prostate cancer Onset (ago): week(s) (1) Related Data Home Medications Medication Instructions Recorded Confirmed atenolol 50 mg tablet 50 mg PO DAILY 09/27/19 04/16/24 atorvastatin 20 mg tablet 20 mg PO DAILY 07/03/22 04/16/24 Allergies Allergy/AdvReac Type Severity Reaction Status Date / Time No Known Allergies Allergy Verified 04/16/24 18:06 Review of Systems Review of Systems: All systems reviewed & are unremarkable except as noted in HPI and below Constitutional: Constitutional: Reports no additional constitutional complaints Eyes: Eyes: Reports no additional eye complaints ENT: Reports system reviewed and no additional complaints, except as documented Cardiovascular: Cardiovascular: Reports no additional cardiovascular complaints, Denies chest pain and Denies dyspnea Respiratory: Respiratory: Reports no additional respiratory complaints, Denies chest congestion, Denies cough and Denies dyspnea Gastrointestinal: Gastrointestinal: Reports no additional gastrointestinal complaints, Denies abdominal pain, Denies nausea and Denies vomiting Genitourinary: Genitourinary: Reports as per HPI and Reports genital pain Musculoskeletal: Musculoskeletal: Reports no additional musculoskeletal complaints Integumentary/Breasts: Skin/Breast: Reports system reviewed and no additional complaints, except as docu Neurologic: Reports system reviewed and no additional complaints, except as documented Psychiatric: Psychiatric: Reports no additional psychiatric complaints Allergic/Immunologic: Allergic/Immunologic: Reports no additional allergic/immunologic complaints [facility] Past Medical History Medical History HTN (hypertension) Nasal fracture Obesity Prostate cancer Thyroid goiter removed from thyroid Surgical History Surgical History H/O cervical spine surgery H/O rhinoplasty History of robot-assisted laparoscopic radical prostatectomy Family History Family History Father Heart disease Hypertension Sibling Hypertension Grandparent Breast cancer Social History Social History Smoking status: Never smoker Alcohol intake: current Drinks per week: 1 Alcohol use details: 3 DRINKS PER MONTH Substance use: never Substance use type: does not use Living arrangements: with family Spiritual care concerns: No Comments At the time of my signature, I reviewed and agree with the nursing past medical, surgical, social, and family history. There is no relevant family history pertinent to the patient complaint. Exam Const: General: cooperative, healthy appearing, comfortable, no acute distress, well developed, alert and well nourished Nutritional Appearance: well nourished Orientation/consciousness: patient oriented x3 Limitations: no limitations HENMT: Head: normal to inspection Ears: hearing grossly normal bilaterally and external ears normal Face/Nose/Sinus: Normal external nose present, Normal nares present, Normal nasal mucous membranes and turbinates present, normal facial exam and face symmetric Face and sinus: normal facial exam and face symmetric Eyes: General: appearance normal, both eyes and all related structures Alignment and Position: alignment normal Periorbital: periorbital find
== END 2024-04-16 18:22 | disposition short-term general hospital (02) ==
PROVIDERS: Emergency Provider Nurse Practitioner; PCP Family Medicine
DX: N50.812 Left testicular pain (principal); N50.811 Right testicular pain; I10 Essential (primary) hypertension; E66.9 Obesity, unspecified; Z68.34 Body mass index [BMI] 34.0-34.9, adult; Z85.46 Personal history of malignant neoplasm of prostate
CPT/HCPCS: 99212; G0463

== ENCOUNTER 2024-04-16 18:42 | Emergency (ER) | payer OTHER, SELFPAY ==
--- NOTE | ~2024-04-16 | US_ITS ---
EXAMINATION: US scrotum doppler DATE: 04/16/2024 20:53 INDICATION: BL testicle pain . TECHNIQUE: Grayscale and Doppler ultrasound images of the testes were obtained. COMPARISON: None. FINDINGS: The right testis measures 4.2 x 2.0 x 2.4 cm. The left testis measures 4.3 x 2.5 x 3.5 cm. No testicular mass. There is normal vascular flow to both testes. The right epididymis contains a 1.6 cm epididymal cyst and is otherwise normal with normal vascular flow. The left epididymis is normal with normal vascular flow. There is trace left scrotal fluid and a small left hydrocele. IMPRESSION: Trace left hydrocele. Small left varicocele. Reviewed, dictated and finalized at location K.
[2024-04-16 19:05] VITALS: BP 136/74; PULSE 66; RESP 20; TEMP 36.6; O2SAT 98
[2024-04-16 19:28] LABS: Appearance Urine Clear (Clear); Bilirubin Urine Negative (Negative); Blood Urine Negative (Negative); Color Urine Yellow (Yellow); Glucose Urine UA Negative (Negative); Ketones Urine Negative (Negative); Leukocyte Esterase Ur Negative LEU/UL (Negative); Nitrate Urine Negative (Negative); Protein Urine Negative (Negative); Specific Grav Ur 1.023 (1.001-1.035)
[2024-04-16 19:36] LABS: Add Urine Microscopic? NO
[2024-04-16 21:01] LABS: Chlamydia trachomatis NOT DETECTED (NOT DETECTE); Neisseria gonorrhoeae PCR NOT DETECTED (NOT DETECTE)
--- NOTE | 2024-04-16 21:59 | ED.GENADULT ---
HPI - General Adult General Chief complaint: Urogenital-Male Stated complaint: [place] testicle pain Time Seen by Provider: 04/16/24 21:26 History of Present Illness HPI narrative: Patient 58-year-old gentleman presents emergency department with chief complaint of testicle pain. Patient reports that for several days he has been having pain test and patient states that it is swollen he reports that it hurts the back of the testicle and reports that he has had no trauma to the area denies penile discharge denies dysuria denies fever denies necrotic tissue or crepitance of the tissue. The patient reports he has no prior history of diabetes Related Data Home Medications Medication Instructions Recorded Confirmed atenolol 50 mg tablet 50 mg PO DAILY 09/27/19 04/16/24 atorvastatin 20 mg tablet 20 mg PO DAILY 07/03/22 04/16/24 Allergies Allergy/AdvReac Type Severity Reaction Status Date / Time No Known Allergies Allergy Verified 04/16/24 18:06 Review of Systems Review of Systems: A 10 system review of systems was completed on the patient and is negative except for what is stated in the HPI. Nursing and ancillary documentation was reviewed. [facility] Past Medical History Medical History HTN (hypertension) Nasal fracture Obesity Prostate cancer Thyroid goiter removed from thyroid Surgical History Surgical History H/O cervical spine surgery H/O rhinoplasty History of robot-assisted laparoscopic radical prostatectomy Family History Family History Father Heart disease Hypertension Sibling Hypertension Grandparent Breast cancer Social History Social History Smoking status: Never smoker Alcohol intake: current Drinks per week: 1 Alcohol use details: 3 DRINKS PER MONTH Substance use: never Substance use type: does not use Living arrangements: with family Spiritual care concerns: No Exam Narrative: GENERAL: Well-appearing, well-nourished, and in no acute distress. HEAD: Normocephalic, atraumatic. EYES: PERRLA and EOMI. ENT: Nares clear, no rhinorrhea or epistaxis. Mucous membranes moist. NECK: Supple. CHEST: Clear to auscultation. No respiratory distress. HEART: Regular rate and rhythm. No murmur heard. Normal peripheral pulses. ABDOMEN: Soft, nontender, nondistended, normal active bowel sounds. : There is tenderness to palpation in the left hemiscrotum there is no crepitance there is no necrotic tissue EXTREMITIES: Normal range of motion. No edema. SKIN: Warm, dry, no rash. NEURO: No focal deficits. Alert and oriented x3. PSYCH: Normal mood and affect. Course Vital Signs Vital signs: Vital Signs Temperature 36.6 C 04/16/24 19:05 Pulse Rate 66 04/16/24 19:05 Respiratory Rate 20 04/16/24 19:05 Blood Pressure 136/74 04/16/24 19:05 Pulse Oximetry 98 04/16/24 19:05 Temperature 36.6 C 04/16/24 19:05 Pulse Rate 66 04/16/24 19:05 Respiratory Rate 20 04/16/24 19:05 Blood Pressure 136/74 04/16/24 19:05 Pulse Oximetry 98 04/16/24 19:05 Medical Decision Making MDM Narrative Medical decision making narrative: Differential diagnosis includes UTI, urethritis, variceal, hydrocele, epididymitis, testicular mass, testicular abscess testicular torsion Urinalysis was obtained which was within normal limits chlamydia and gonorrhea test were negative Scrotal ultrasound was obtained that showed FINDINGS: The right testis measures 4.2 x 2.0 x 2.4 cm. The left testis measures 4.3 x 2.5 x 3.5 cm. No testicular mass. There is normal vascular flow to both testes. The right epididymis contains a 1.6 cm epididymal cyst and is otherwise normal with normal vascular flow. The left epididymis is normal with norm
== END 2024-04-16 22:18 | disposition home or self-care (01) ==
PROVIDERS: Emergency Medicine; Emergency Provider Emergency Medicine; PCP Family Medicine
DX: I86.1 Scrotal varices (principal); N43.3 Hydrocele, unspecified; I10 Essential (primary) hypertension; E66.9 Obesity, unspecified; Z68.34 Body mass index [BMI] 34.0-34.9, adult; Z85.46 Personal history of malignant neoplasm of prostate; Z90.79 Acquired absence of other genital organ(s)
CPT/HCPCS: 76870; 81003; 87491; 87591; 93976; 99284

== ENCOUNTER 2024-04-18 10:54 | Outpatient (CLI) | payer OTHER, SELFPAY ==
[2024-04-18 13:26] LABS: Appearance Urine Clear (Clear); Bilirubin Urine Negative (Negative); Blood Urine Negative (Negative); Color Urine Yellow (Yellow); Glucose Urine UA Negative (Negative); Ketones Urine Negative (Negative); Leukocyte Esterase Ur Negative LEU/UL (Negative); Nitrate Urine Negative (Negative); Protein Urine Negative (Negative); Specific Grav Ur 1.018 (1.001-1.035); Urobilinogen Urine 0.2 mg/dL (<2.0)
[2024-04-18 13:28] LABS: Add Urine Microscopic? NO
[2024-04-18 13:29] LABS: Alanine Aminotransferase 23 U/L (6-50); Albumin Level 4.3 g/dL (3.5-5.1); Alkaline Phosphatase 75 U/L (38-126); Anion Gap 2 mmol/L (4-12); Aspartate Amino Transferase 28 U/L (17-59); Bilirubin,Total 0.8 mg/dL (0.2-1.3); Blood Urea Nitrogen 34 mg/dL (9-20); Calcium 9.3 mg/dL (8.4-10.2); Carbon Dioxide 30 mmol/L (22-30); Chloride 107 mmol/L (98-107); Cholesterol 178 mg/dL (0-200); Estimated Glomerular Filt Rate 57; Glucose 108 mg/dL (65-110); HDL Direct 56 mg/dL; Potassium 4.6 mmol/L (3.4-5.0); Sodium 139 mmol/L (137-145); Triglycerides 67 mg/dL (<150)
[2024-04-18 13:30] LABS: Basophils Percent Auto 0.8 % (0.2-1.2); Eosinophils Absolute Auto 0.3 K/mm3 (0-0.3); Eosinophils Percent Auto 5.5 % (0-4.4); Hemoglobin 15.4 g/dL (14.0-18.0); Immature Granulocyte Absolute 0.03 K/mm3 (0.00-0.031); Immature Granulocyte Percent A 0.6 % (0-0.5); Lymphocytes Absolute Auto 1.19 K/mm3 (0.9-3.2); Lymphocytes Percent Auto 22.6 % (18.3-44.2); Mean Corpuscular HGB Conc 32.1 g/dl (32-36); Mean Corpuscular Hemoglobin 29.5 pg (26-34); Mean Platelet Volume 11.1 fl (7.4-10.4); Monocytes Absolute Auto 0.7 K/mm3 (0.1-0.6); Monocytes Percent Auto 13.5 % (2.6-8.5); Platelet Count Result 242 k/mm3 (150-375); Red Blood Count 5.22 M/mm3 (4.6-6.20); Red Cell Distribution Width 13.7 % (11.5-14.5); White Blood Count 5.3 K/mm3 (4.5-10.0)
[2024-04-18 13:37] LABS: Vitamin D 25 Hydroxy 28.8 ng/mL
[2024-04-18 13:41] LABS: LDL Cholesterol Direct 108 mg/dL
[2024-04-18 13:54] LABS: Thyroid Stimulating Hormone 0.751 uIU/mL (0.465-4.680)
== END 2024-04-18 10:55 | disposition home or self-care (01) ==
PROVIDERS: PCP Family Medicine
DX: Z13.21 Encounter for screening for nutritional disorder (principal); R53.81 Other malaise; E55.9 Vitamin D deficiency, unspecified; N43.3 Hydrocele, unspecified; E78.5 Hyperlipidemia, unspecified
CPT/HCPCS: 36415; 80053; 80061; 81003; 82306; 82607; 82746; 84443; 85025

== ENCOUNTER 2025-01-13 13:32 | Emergency (ER) | payer OTHER, SELFPAY ==
--- NOTE | ~2025-01-13 | CT_ITS ---
EXAMINATION: CT abdomen pelvis w con DATE: 01/13/2025 15:58 INDICATION: Left inguinal hernia TECHNIQUE: Computed tomography (CT) of the abdomen and pelvis was performed with 100 mL Omnipaque-350 intravenous contrast. Automated exposure control and iterative reconstruction technique were employe d. The dose-length product was 1993.60 mGy-cm. COMPARISON: None FINDINGS: Lung bases are clear. Heart size is normal. No pericardial or pleural effusion. Small sliding-type hi atal hernia. Liver, gallbladder, spleen, pancreas, bilateral adrenal glands and right kidney are norm al. 1.7 cm left renal cyst. Large left inguinal hernia which contains the proximal sigmoid colon. No dilated bowel to suggest obstruction. Normal appendix. Bladder is normal aside from change of prior p rostatectomy. No free intraperitoneal gas or fluid. No pathologically enlarged abdominal or pelvic ly mphadenopathy. Moderate thoracolumbar spondylosis. IMPRESSION: 1. Nonobstructed proximal sigmoid colon extends into a large indirect left inguinal hernia. 2. Small sliding-type hiatal hernia. Reviewed, dictated and finalized at location B. [facility] REPORTING DEVELOPER IMPRESSION: 1. Nonobstructed proximal sigmoid colon extends into a large indirect left ingu inal hernia. 2. Small sliding-type hiatal hernia.
[2025-01-13 14:01] VITALS: BP 133/74; PULSE 75; RESP 18; TEMP 36.7; O2SAT 98
--- NOTE | 2025-01-13 14:05 | ED.GENADULT ---
HPI - General Adult General Chief complaint: Abdominal Pain <Hazel Kimble PA-C - Last Filed: 01/13/25 14:06> Stated complaint: pulled something <Hazel Kimble PA-C - Last Filed: 01/13/25 14:06> Time Seen by Provider: 01/13/25 17:19 <Hazel Kimble PA-C - Last Filed: 01/13/25 14:06> Focused HPI: 59-year-old male presents to the emergency department for concerns for hernia to the left inguinal region. Patient states a few days ago he lifted something heavy and later felt pain and a bulge to his scrotum and left groin. Denies bowel or bladder changes, obstipation, fever. GENERAL: Well-appearing, well-nourished, and in no acute distress. HEAD: Normocephalic, atraumatic. CHEST: Clear to auscultation. ?No respiratory distress. HEART: Regular rate and rhythm.? NEURO: ?Alert and oriented x3. Patient screened in triage and initial orders placed.? ?Additional care and disposition to be based upon?diagnostic testing and treatment. <Hazel Kimble PA-C - Last Filed: 01/13/25 14:06> History of Present Illness HPI narrative: Hip 59-year-old gentleman presents emergency department with chief complaint of left inguinal hernia. Patient reports that few days ago was lifting something heavy felt a bulge and a tearing sensation in his left scrotum and inguinal area patient denies bowel or bladder incontinence denies constipation or urinary retention <Jose Angel Saab MD - Last Filed: 01/13/25 18:27> Related Data Home medications: Home Medications ?Medication ?Instructions ?Recorded ?Confirmed ?Last Taken ?Type atenolol 50 mg tablet 50 mg PO DAILY 09/27/19 04/16/24 10/20/20 05:00 History atorvastatin 20 mg tablet 20 mg PO DAILY 07/03/22 04/16/24 Unknown History <Hazel Kimble PA-C - Last Filed: 01/13/25 14:06> Allergies/adverse reactions: Allergies Allergy/AdvReac Type Severity Reaction Status Date / Time No Known Allergies Allergy Verified 04/16/24 18:06 <Hazel Kimble PA-C - Last Filed: 01/13/25 14:06> Review of Systems Review of Systems: A 10 system review of systems was completed on the patient and is negative except for what is stated in the HPI. Nursing and ancillary documentation was reviewed. <Jose Angel Saab MD - Last Filed: 01/13/25 18:27> PMFSH Past Medical History Medical History: Medical History Thyroid goiter removed from thyroid Nasal fracture Prostate cancer HTN (hypertension) Obesity <Hazel Kimble PA-C - Last Filed: 01/13/25 14:06> Surgical History Surgical History: Surgical History History of robot-assisted laparoscopic radical prostatectomy H/O cervical spine surgery H/O rhinoplasty <Hazel Kimble PA-C - Last Filed: 01/13/25 14:06> Family History Family History: Family History Father Heart disease Hypertension Sibling Hypertension Grandparent Breast cancer <Hazel Kimble PA-C - Last Filed: 01/13/25 14:06> Social History Social History: Social History Smoking status: Never smoker Alcohol intake: current Drinks per week: 1 Alcohol use details: 3 DRINKS PER MONTH Substance use: never Substance use type: does not use Living arrangements: with family Spiritual care concerns: No <Hazel Kimble PA-C - Last Filed: 01/13/25 14:06> Exam Narrative: GENERAL: Well-appearing, well-nourished, and in no acute distress. HEAD: Normocephalic, atraumatic. EYES: PERRLA and EOMI. ENT: Nares clear, no rhinorrhea or epistaxis. Mucous membranes moist. NECK: Supple. CHEST: Clear to auscultation. No respiratory distress. HEART: Regular rate and rhythm. No murmur heard. Normal peripheral pulses. ABDOMEN: Soft, nontender, nondistended, normal active bowel sounds. : Large left inguinal hernia nonreducible nontender EXTREMITIES: Normal range of motion. No edema. SKIN: Warm, dry, no rash. NEURO: No focal deficits. Alert and oriented x3. PSYCH: Normal mood and affect. <Jose Angel Saab MD - Last Filed: 01/13/25 18:27> Course Vital Signs Vital signs: Vital Signs Temperature 36.7 C 01/13/25 14:01 Pulse Rate 75 01/13/25 14:01 Respiratory Rate 18 01/13/25 14:01 Blood Pressure 133/74 01/13/25 14:01 Pulse Oximetry 98 01/13/25 14:01 Temperature 36.7 C 01/13/25 14:01 Pulse Rate 64 01/13/25 17:35 Respiratory Rate 18 01/13/25 17:35 Blood Pressure 135/90 01/13/25 17:35 Pulse Oximetry 98 01/13/25 17:35 <Haezl Kimble PA-C - Last Filed: 01/13/25 14:06> Vital Signs Temperature 36.7 C 01/13/25 14:01 Pulse Rate 75 01/13/25 14:01 Respiratory Rate 18 01/13/25 14:01 Blood Pressure 133/74 01/13/25 14:01 Pulse Oximetry 98 01/13/25 14:01 Temperature 36.7 C 01/13/25 14:01 Pulse Rate 64 01/13/25 17:35 Respiratory Rate 18 01/13/25 17:35 Blood Pressure 135/90 01/13/25 17:35 Pulse Oximetry 98 01/13/25 17:35 <Jose Angel Saab MD - Last Filed: 01/13/25 18:27> Medical Decision Making MDM Narrative Medical decision making narrative: Differential diagnosis includes hernia, incarcerated hernia CBC was within normal limits CMP showed no acute abnormality CT scan showed a large left inguinal hernia with no evidence of obstruction Case was discussed with Dr. Gracia of surgical service who will see the patient in the office <Jose Angel Saab MD - Last Filed: 01/13/25 18:27> Vital Signs Vital Signs: Vital Signs Temperature 36.7 C 01/13/25 14:01 Pulse Rate 75 01/13/25 14:01 Respiratory Rate 18 01/13/25 14:01 Blood Pressure 133/74 01/13/25 14:01 Pulse Oximetry 98 01/13/25 14:01 Temperature 36.7 C 01/13/25 14:01 Pulse Rate 64 01/13/25 17:35 Respiratory Rate 18 01/13/25 17:35 Blood Pressure 135/90 01/13/25 17:35 Pulse Oximetry 98 01/13/25 17:35 <Hazel Kimble PA-C - Last Filed: 01/13/25 14:06> Vital Signs Temperature 36.7 C 01/13/25 14:01 Pulse Rate 75 01/13/25 14:01 Respiratory Rate 18 01/13/25 14:01 Blood Pressure 133/74 01/13/25 14:01 Pulse Oximetry 98 01/13/25 14:01 Temperature 36.7 C 01/13/25 14:01 Pulse Rate 64 01/13/25 17:35 Respiratory Rate 18 01/13/25 17:35 Blood Pressure 135/90 01/13/25 17:35 Pulse Oximetry 98 01/13/25 17:35 <Jose Angel Saab MD - Last Filed: 01/13/25 18:27> Lab Data Result diagrams: 01/13/25 14:08 01/13/25 14:08 <Hazel Kimble PA-C - Last Filed: 01/13/25 14:06> Labs: Lab Results 01/13/25 01/13/25 Range/Units 14:08 17:26 WBC 5.9 (4.5-10.0) K/mm3 RBC 5.26 (4.6-6.20) M/mm3 Hgb 15.3 (14.0-18.0) g/dL Hct 46.7 (42.0-52.0) % MCV 88.8 (80-100) fl MCH 29.1 (26-34) pg MCHC 32.8 (32-36) g/dl RDW 13.9 (11.5-14.5) % Plt Count 249 (150-375) k/mm3 MPV 10.7 H (7.4-10.4) fl Immature Gran % (Auto) 0.7 H (0-0.5) % Neut % (Auto) 60.4 (45.5-73.1) % Lymph % (Auto) 22.1 (18.3-44.2) % [place] % (Auto) 10.8 H (2.6-8.5) % Eos % (Auto) 5.5 H (0-4.4) % Baso % (Auto) 0.5 (0.2-1.2) % Lymph # (Auto) 1.29 (0.9-3.2) K/mm3 [place] # (Auto) 0.6 (0.1-0.6) K/mm3 Eos # (Auto) 0.3 (0-0.3) K/mm3 Baso # (Auto) 0.0 (0.0-0.1) K/mm3 Abs Immat Gran (auto) 0.04 H (0.00-0.031) K/mm3 Absolute Neuts (auto) 3.5 (1.3-6.7) K/mm3 Absolute Nucleated RBC 0.000 (0.0-0.012) K/mm3 Nucleated RBC % 0.0 (0.0-0.2) % Sodium 139 (137-145) mmol/L Potassium 4.1 (3.4-5.0) mmol/L Chloride 107 (98-107) mmol/L Carbon Dioxide 21 L (22-30) mmol/L Anion Gap 11 (4-12) mmol/L BUN 22 H D (9-20) mg/dL Creatinine 0.96 (0.7-1.3) mg/dL Estim Creat Clear Calc 105 ml/min Estimated GFR > 60 (59 - ) Glucose 143 H (65-110) mg/dL Calcium 8.7 (8.4-10.2) mg/dL Total Bilirubin 0.7 (0.2-1.3) mg/dL AST 18 (17-59) U/L ALT 19 (6-50) U/L Alkaline Phosphatase 73 (38-126) U/L Total Protein 7.0 (6.3-8.2) g/dL Albumin 4.0 (3.5-5.1) g/dL Urine Color Yellow (Yellow) Urine Appearance Clear (Clear) Urine pH 5.0 (5.0-9.0) Ur Specific [place] > 1.045 H (1.001-1.035) Urine Protein Negative (Negative) mg/dL Urine Glucose (UA) Negative (Negative) mg/dL Urine Ketones Negative (Negative) mg/dL Ur Blood (Man) Negative (Negative) Urine Nitrate Negative (Negative) Urine Bilirubin Negative (Negative) Urine Urobilinogen 0.2 (<2.0) mg/dL Leukocyte Esterase Rfl Negative (Negative) ASUNCION/UL <Hazel Kimble PA-C - Last Filed: 01/13/25 14:06> Lab Results 01/13/25 01/13/25 Range/Units 14:08 17:26 WBC 5.9 (4.5-10.0) K/mm3 RBC 5.26 (4.6-6.20) M/mm3 Hgb 15.3 (14.0-18.0) g/dL Hct 46.7 (42.0-52.0) % MCV 88.8 (80-100) fl MCH 29.1 (26-34) pg MCHC 32.8 (32-36) g/dl RDW 13.9 (11.5-14.5) % Plt Count 249 (150-375) k/mm3 MPV 10.7 H (7.4-10.4) fl Immature Gran % (Auto) 0.7 H (0-0.5) % Neut % (Auto) 60.4 (45.5-73.1) % Lymph % (Auto) 22.1 (18.3-44.2) % [place] % (Auto) 10.8 H (2.6-8.5) % Eos % (Auto) 5.5 H (0-4.4) % Baso % (Auto) 0.5 (0.2-1.2) % Lymph # (Auto) 1.29 (0.9-3.2) K/mm3 [place] # (Auto) 0.6 (0.1-0.6) K/mm3 Eos # (Auto) 0.3 (0-0.3) K/mm3 Baso # (Auto) 0.0 (0.0-0.1) K/mm3 Abs Immat Gran (auto) 0.04 H (0.00-0.031) K/mm3 Absolute Neuts (auto) 3.5 (1.3-6.7) K/mm3 Absolute Nucleated RBC 0.000 (0.0-0.012) K/mm3 Nucleated RBC % 0.0 (0.0-0.2) % Sodium 139 (137-145) mmol/L Potassium 4.1 (3.4-5.0) mmol/L Chloride 107 (98-107) mmol/L Carbon Dioxide 21 L (22-30) mmol/L Anion Gap 11 (4-12) mmol/L BUN 22 H D (9-20) mg/dL Creatinine 0.96 (0.7-1.3) mg/dL Estim Creat Clear Calc 105 ml/min Estimated GFR > 60 (59 - ) Glucose 143 H (65-110) mg/dL Calcium 8.7 (8.4-10.2) mg/dL Total Bilirubin 0.7 (0.2-1.3) mg/dL AST 18 (17-59) U/L ALT 19 (6-50) U/L Alkaline Phosphatase 73 (38-126) U/L Total Protein 7.0 (6.3-8.2) g/dL Albumin 4.0 (3.5-5.1) g/dL Urine Color Yellow (Yellow) Urine Appearance Clear (Clear) Urine pH 5.0 (5.0-9.0) Ur Specific [place] > 1.045 H (1.001-1.035) Urine Protein Negative (Negative) mg/dL Urine Glucose (UA) Negative (Negative) mg/dL Urine Ketones Negative (Negative) mg/dL Ur Blood (Man) Negative (Negative) Urine Nitrate Negative (Negative) Urine Bilirubin Negative (Negative) Urine Urobilinogen 0.2 (<2.0) mg/dL Leukocyte Esterase Rfl Negative (Negative) ASUNCION/UL <Jose Angel Saab MD - Last Filed: 01/13/25 18:27> Discharge Plan Discharge Clinical Impression: Inguinal hernia, left <Hazel Kimble PA-C - Last Filed: 01/13/25 14:06> Patient Disposition: Home, Self-Care <Hazel Kimble PA-C - Last Filed: 01/13/25 14:06> Condition: Stable <Hazel Kimble PA-C - Last Filed: 01/13/25 14:06> Instructions: Antibiotic Form, Inguinal Hernia (ED) <Hazel Kimble PA-C - Last Filed: 01/13/25 14:06> Additional Instructions: Please elevate your scrotum to provide support when at home you can take a rolled-up washcloth or tile to elevate your scrotum please wear supportive underwear Please follow-up with Dr. Gracia either tomorrow or Monday <Hazel Kimble PA-C - Last Filed: 01/13/25 14:06> Patient Language: Czech <Hazel Kimble PA-C - Last Filed: 01/13/25 14:06> Prescriptions: No Action atorvastatin 20 mg Tablet 20 mg PO DAILY ibuprofen 800 mg tablet 800 mg PO TID PRN (Reason: pain) Qty: 20 0RF atenolol 50 mg Tablet 50 mg PO DAILY <Hazel Kimble PA-C - Last Filed: 01/13/25 14:06> Follow-up/Referrals: Landon,Hong Davidson MD [Primary Care Provider] - Kathleen Gracia MD [Physician] - <Hazel Kimble PA-C - Last Filed: 01/13/25 14:06> Time of Disposition: 17:44 <Hazel Kimble PA-C - Last Filed: 01/13/25 14:06> 17:44 <Jose Angel Saab MD - Last Filed: 01/13/25 18:27>
[2025-01-13 14:17] LABS: Basophils Percent Auto 0.5 % (0.2-1.2); Eosinophils Absolute Auto 0.3 K/mm3 (0-0.3); Eosinophils Percent Auto 5.5 % (0-4.4); Hematocrit 46.7 % (42.0-52.0); Hemoglobin 15.3 g/dL (14.0-18.0); Immature Granulocyte Absolute 0.04 K/mm3 (0.00-0.031); Immature Granulocyte Percent A 0.7 % (0-0.5); Lymphocytes Absolute Auto 1.29 K/mm3 (0.9-3.2); Lymphocytes Percent Auto 22.1 % (18.3-44.2); Mean Corpuscular HGB Conc 32.8 g/dl (32-36); Mean Corpuscular Hemoglobin 29.1 pg (26-34); Mean Corpuscular Volume 88.8 fl (80-100); Mean Platelet Volume 10.7 fl (7.4-10.4); Monocytes Absolute Auto 0.6 K/mm3 (0.1-0.6); Monocytes Percent Auto 10.8 % (2.6-8.5); Neutrophils Absolute Auto 3.5 K/mm3 (1.3-6.7); Neutrophils Percent Auto 60.4 % (45.5-73.1); Platelet Count Result 249 k/mm3 (150-375); Red Blood Count 5.26 M/mm3 (4.6-6.20); Red Cell Distribution Width 13.9 % (11.5-14.5); White Blood Count 5.9 K/mm3 (4.5-10.0)
[2025-01-13 14:28] LABS: Alanine Aminotransferase 19 U/L (6-50); Alkaline Phosphatase 73 U/L (38-126); Anion Gap 11 mmol/L (4-12); Aspartate Amino Transferase 18 U/L (17-59); Bilirubin,Total 0.7 mg/dL (0.2-1.3); Blood Urea Nitrogen 22 mg/dL (9-20); Calcium 8.7 mg/dL (8.4-10.2); Carbon Dioxide 21 mmol/L (22-30); Chloride 107 mmol/L (98-107); Estimated CRCL calculation 105 ml/min; Estimated Glomerular Filt Rate > 60; Glucose 143 mg/dL (65-110); Potassium 4.1 mmol/L (3.4-5.0); Sodium 139 mmol/L (137-145)
--- OUTSIDE RECORDS SUMMARY | 2025-01-13 15:30 | XMS_ITS | Clinical Summary ---
Author Organization [facility] [place] [address] [facility] Address [address] [place] [address] Care Team Providers Care Power Equipment Mechanics Instructor Name Role Phone Hong Landon MD Primary Care Provider [phone] Allergies No known active allergies Medications fluticasone propionate (FLONASE) 50 mcg/actuation nasal sprayIndications:S easonal allergic rhinitis due to pollen Administer 2 sprays into each nostril daily 16 g 11 08/29/20 22 Active Additional Information Patient not taking.Reported on 04/30/2024 atenoloL (TENORMIN) 50 mg tabletIndications: Hypertension, unspecified type Take 1 tablet (50 mg total) by mouth daily 90 tablet 3 06/01/20 23 Active atorvastatin (LIPITOR) 20 mg tabletIndications: Hyperlipidemia, unspecified hyperlipidemia type Take 1 tablet (20 mg total) by mouth daily 90 tablet 3 06/01/20 23 Active Active Problems Problem Noted Date Diagnosed Date Encounter for screening colonoscopy 09/26/2023 Esophageal dysphagia 08/29/2022 Assessment & Plan (08/29/2022 9:25 AM CDT): Esophagram Sensorineural hearing loss (SNHL) of both ears 1 Assessment & Plan (08/29/2022 9:25 AM CDT): Hearing test Seasonal allergic rhinitis due to pollen 022 Assessment & Plan (08/29/2022 9:25 AM CDT): Flonase 2 sprays into each nostril while looking down over the sink, do not sniff in or blow nose after use for at least 30 minutes Consider Pepcid if no improvement Abnormal CT scan, lumbar spine 05/13/2022 Assessment & Plan (05/13/2022 7:09 PM CDT): Awaiting results from [place] re: abnormal CT chest. Discussed possible PET scan pending results from [place]. Verified contact # for call back once fax/information rec'd. Lytic lesion of bone on x-ray 05/13/2022 Assessment & Plan (05/13/2022 7:09 PM CDT): Awaiting results from [place] re: abnormal CT chest. Discussed possible PET scan pending results from [place]. Verified contact # for call back once fax/information rec'd. Mixed hyperlipidemia 11/26/2021 Assessment & Plan (11/26/2021 8:43 AM MANAGER WINTER): 06/2021 TC 210 TRG 46 HDL 54 LDL 147 11/2021 TC 160 TRG 69 HDL 54 LDL 93 Lipid panel improved with atorvastatin 20mg daily, denies any medication SE's. Will check LFT today. Encounter for colorectal cancer screening 2021 Prostate cancer 07/05/2021 Assessment & Plan (07/05/2021 1:23 PM CDT): s/p prostatectomy; following with urology, Dr. Pandey. Last OV: Class 1 obesity due to exces s calories with serious comorbidity and body mass index (BMI) of 32.0 to 32.9 in adult 07/05/2021 Assessment & Plan (05/13/2022 7:09 PM CDT): Reviewed need to lose weight, reviewed health benefits. Reviewed recommendations for daily intake & activity 20-30 minutes/day. Discussed healthy diet and importance of regular physical activity. Assessment & Plan (11/26/2021 8:41 AM MANAGER WINTER): Discussed healthy diet and importance of regular physical activity. Assessment & Plan (07/05/2021 5:53 PM CDT): Discussed healthy diet and importance of regular physical activity. Hypertension 03/25/2013 Overview (02/23/2017): Hypertension Assessment & Plan (11/26/2021 8:19 AM MANAGER WINTER): Stable; continue atenolol without change. Assessment & Plan (07/05/2021 1:44 PM CDT): Doing well on current regimen. Ideally should be <140/90, patient to check at home once weekly and inform office if readings are above goal. Continue effort to improve diet-increase fruits/vegetables. Watch sodium intake <2000mg daily Labs ordered; will notify of results. Resolved Problems Problem Noted Date Diagnosed Date Resolved Date Abnormal CT of the chest 05/12/2022 Assessment & Plan (05/13/2022 7:08 PM CDT): Awaiting results from [place] re: abnormal CT chest. Discussed possible PET scan pending results from [place]. Verified contact # for call back once fax/information rec'd. Lipid screening 07/05/2021 11/26/2021 Assessment & Plan (07/05/2021 1:26 PM CDT): Reviewed previous lipid panel. Discussed ascvd risk. Lab Results Component Value Date CHOL 228 (H) 11/05/2020 TRIG 48 11/05/2020 HDL 65 11/05/2020 LDLCALC 153 (H) 11/05/2020 The 10-year ASCVD risk score (Merlinrbendan LANE Jr., et al., 2013) is: 8% Values used to calculate the score: Age: 56 years Sex: Male Is Non- : No Diabetic: No Tobacco smoker: No Systolic Blood Pressure: 136 mmHg Is BP treated: Yes HDL Cholesterol: 65 mg/dL Total Cholesterol: 228 mg/dL Will check labs today. Patient agreeable to medications if indicated. Immunizations Immunization Administration Dates Next Due Influenza, Quadrivalent, Spl it, Preservative Free, Intramuscular 11/04/2020,09/09/2019 Influenza, Trivalent, IM (MDV) 09/17/2014 Influenza, Unspecified 02/17/2023(Deferr ed: Patient Refused),08/20/2021 Keith (J&J) SARS-CoV-2 Vaccination 02/18/2021 Pfizer SARS-CoV-2 Monovalent Vaccination (12+ Yrs) PURPLE 10/12/2021 Surgical History Surgery Date Site/Laterality Comments ANTERIOR CERVICAL DISCECTOMY W/ FUSION 11/20/2014 - 11/19/2015 PROSTATECTOMY 10/20/2020 - 11/19/2020 [place] [place]/2024 Medical History Medical History Date Comments Hx Other Medical 04/18/2013 Septo, CRBARBARA Goiter 04/2001 Injury of forehead 12/2013 Nose Job 2013 H/O prostatectomy 12/2020 Prostate cancer (HCC) Hypertension Family History Medical History Relation Name Comments No Known Problems Brother Heart disease Father Alzheimer's disease Mother Heart disease Other Family history of Heart disease; No Known Problems Sister 1 No Known Problems Sister 2 Relation Name Status Comments Brother Alive Father (Age 41) Mother Alive Other Sister 1 Alive Sister 2 Alive Social History Tobacco Use Types Packs/Day Years Used Date Smoking Tobacco: Never Smokeless Tobacco: Never Tobacco Cessation:Counseling Given: Not Answered Alcohol Use Standard Drinks/Week Comments Yes 0 (1 standard drink = 0.6 oz pur e alcohol) AUDIT-C Answer Date Recorded Q1: How often do you have a drink containing alc ohol? Monthly or less 04/30/2024 Q2: How many drinks containi ng alcohol do you have on a typical day when you are drinking? 1 or 2 04/30/2024 Q3: How often do you have si x or more drinks on one occasion? Never 04/30/2024 PHQ-2 Answer Date Recorded PHQ-2 Total Score (If total score is 3 or more points, staff should administer the PHQ-9) 1 06/01/2023 Personal Safety Answer Date Recorded Have you ever been in or are you currently in a harmful physical or emotional relationship or is someone making you feel afraid or unsafe? Denies 04/30/2024 Sex and Gender Information Value Date Recorded Sex Assigned at Not on file Legal Sex Male 4:06 PM MANAGER WINTER Gender Identity Not on file Sexual Orientation Not on file Obstetrics History Last Filed Vital Signs Vital Sign Reading Time Taken Comments Blood Pressure 112/72 04/30/2024 10:26 AM CDT Pulse 67 04/30/2024 10:26 AM CDT Temperature 36.8 C (98.2 F) 04/30/2024 10:26 AM CDT Respiratory Rate 16 04/30/2024 10:26 AM CDT Oxygen Saturation 95% 04/30/2024 10:26 AM CDT Inhaled Oxygen Concentration - - Weight 131.5 kg (290 lb) 04/30/2024 8:20 AM CDT Height 193 cm (6' 4 ) 04/30/2024 8:20 AM CDT Body Mass Index 35.3 04/30/2024 8:20 AM CDT Plan of Treatment Health Maintenance Due Date Last Done Comments Hepatitis C Screening 1965 DTaP/Tdap/Td Vaccine (1 - Tdap) 1975 Hepatitis B Screening 1982 Zoster Vaccine (1 of 2) 2014 Prostate Cancer Screening-PSA 09/09/2021 09/09/2019 Depression Screening 06/01/2024 06/01/2023, 05/12/2022, 11/26/2021, Additional history exists Regular Well Visit/Exam 18-64 06/01/2024 06/01/2023 Covid-19 Vaccine (2023- season) 2024 10/12/2021, 02/18/2021 Influenza Vaccine (#1) 2024 , 11/04/2020, 09/09/2019, Additional history exists Colon Cancer Screening-Colonoscopy 04/30/2034 04/30/2024 Colon Cancer Screening-CT Colonography Discontinued 04/30/2024 Colon Cancer Screening-DNA Stool Discontinued 04/30/2024 Colon Cancer Screening-FIT Discontinued 04/30/2024 Colon Cancer Screening-Sigmoidoscopy Discontinued 04/30/2024 Pneumococcal vaccine <65 Aged Out No longer eligible based on patient's age to complete this topic Procedures Procedure Name Priority Date/Time Associated Diagnosis Comments COLONOSCOPY 04/30/2024 8:33 AM CDT PSA SCREEN Routine 09/09/2019 10:38 AM CDT Prostate cancer screening from Last 3 Months or Most Recently Relevant to Health Maintenance Results * Colonoscopy (04/30/2024 8:33 AM CDT) Anatomical Region Laterality Modality Other Narrative Procedure Note Fely Ramirez MD - 04/30/2024 8:33 AM CDT [facility] Patient Name: Kenyatta Villela Procedure Date: 04/30/2024 8:33 AM Date of : 1965 Admit Type: Outpatient Age: 58 Gender: Male Attending MD: Fely Ramirez M.D. Room: [facility] ENDOSCOPY ROOM 1 Note Status: Finalized Patient Profile: This is a 58 year old male. No family h/o colon cancer. No specific GI complains. Procedure: Colonoscopy Indications: Screening for colorectal malignant neoplasm, Last colonoscopy: date unknown (unable to locate last colonoscopy report) Referring MD: Hong Landon M.D. Providers: Fely Ramirez M.D. Impression: - The entire examined colon is normal. - Internal hemorrhoids. - No specimens collected. Recommendation: - Repeat colonoscopy in 8 years for screeningpurposes. - Continue present medications. Medicines: Monitored Anesthesia Care Complications: No immediate complications. Estimated Blood Loss: Estimated blood loss: none. Procedure: Pre-Anesthesia Assessment: - Prior to the procedure, a History and Physicalwas performed, and patient medications and allergieswere reviewed. The patient's tolerance of previous anesthesia was also reviewed. The risks andbenefits of the procedure and the sedation options and risks were discussed with the patient. All questions were answered, and informed consent was obtained. Prior Anticoagulants: The patient has taken noanticoagulant or antiplatelet agents. ASA Grade Assessment: Per anesthesia note and evaluation. After reviewing the risks and benefits, the patient was deemed in satisfactory condition to undergo the procedure. The benefits, risks and alternatives of theprocedure and sedation were discussed and informed consentwas obtained. All questions were answered. Please referto the signed informed consent document in the medical record. The bowel preparation used was Miralax and bisacodyl tablets via split dose instruction. The scope was passed under direct vision. The Pediatric Colonoscope PCF-H190L [id number] was introducedthrough the anus and advanced to the the cecum, identifiedby appendiceal orifice and ileocecal valve. Thequality of the bowel preparation was fair. Bowel prep was administered using a split dose. Findings: The perianal and digital rectal examinations were normal. The cecum appeared normal. The colon (entire examined portion) appeared normal. The colon was somewhat redundant and long. Colon preparation overall was fair and extensive washing has to be used to clear the colon. No polyps and no mass lesions noted. Internal hemorrhoids were found during retroflexion. The hemorrhoids were small. Electronically signed by Fely Ramirez M.D. Fely Ramirez M.D. 04/30/2024 10:08:15 AM Number of Addenda: 0 Note Initiated On: 04/30/2024 8:33 AM Procedure Code(s): --- Professional --- 46480, Colonoscopy, flexible; diagnostic, including collection of specimen(s) by brushing or washing, when performed (separateprocedure) Diagnosis Code(s): --- Professional --- Z12.11, Encounter for screening for malignant neoplasm of colon K64.8, Other hemorrhoids CPT copyright 2020 [employer]. All rights reserved. The codes documented in this report are preliminary and upon superintendent cemetery reviewmay be revised to meet current compliance requirements. Recognized by the [employer] for promoting quality in endoscopy Fely Ramirez MD ENDOSCOPY PROCEDURES Final Result * (ABNORMAL) PSA screen (09/09/2019 10:38 AM CDT) PSA-Total 6.30(H) <=3.90 ng/mL DESTIN Comment: Interpretive Data AGE SEX REFERENCE INTERVAL 0 minutes-150 years Female None 0 minutes-49 years Male None 50-59 years Male 0-3.90 60-69 years Male 0-5.40 70-79 years Male 0-6.20 80-150 years Male 0-6.20 Current interpretive data last revised 2018. Blood specimen (specimen) 09/09/2019 10:38 AM CDT 09/09/2019 5:03 PM CDT Brennon Whatley MD LAB BLOOD ORDERABLES Tamanna naylor Result Performing Organization Address City/State/[facility] Co de Phone Number [facility] [address] [place] [address] from Last 3 Months or Most Recently Relevant to Health Maintenance Insurance [facility] CHOICE PLUS [facility] HMO/PPO Address: [address] [address] [place] [address] Advance Directives For more information, please contact: [phone] * Full Code (Latest Code Status on File) Date Activated Date Inactivated Comments 04/30/2024 8:09 AM 04/30/2024 3:05 PM * Full Code Date Activated Date Inactivated Comments 04/30/2024 8:09 AM 04/30/2024 8:09 AM Care Teams Power Equipment Mechanics Instructor Relationship Specialty Start Date End Date Hong Landon MD [address] [place] [id number] PCP - General Family Medicine 04/19/24
--- OUTSIDE RECORDS SUMMARY | 2025-01-13 15:30 | XMS_ITS | Referral Summary ---
Author Organization [facility] [place] [address] [facility] Address [address] [address] Care Team Providers Care Farm Implement Mechanic Name Role Phone Hong Landon MD Primary Care Provider [phone] Allergies No known active allergies Medications fluticasone [...] (05/13/2022 7:09 PM CDT): Awaiting results from [place] re: abnormal CT chest. Discussed possible PET scan pending results from [place]. Verified contact # for call back once fax/information rec'd. Lytic lesion of bone on x-ray 05/13/2022 Assessment & Plan (05/13/2022 7:09 PM CDT): Awaiting results from [place] re: abnormal CT chest. Discussed possible PET scan pending results from [place]. Verified contact # for call back once fax/information rec'd. Mixed hyperlipidemia 11/26/2021 Assessment & Plan (11/26/2021 8:43 AM PHOTOENGRAVING PRINTER): 06/2021 TC 210 TRG 46 HDL 54 [...] activity. Assessment & Plan (11/26/2021 8:41 AM PHOTOENGRAVING PRINTER): Discussed healthy diet and importance of regular physical activity. Assessment & Plan (07/05/2021 5:53 PM CDT): Discussed healthy diet and importance of regular physical activity. Hypertension 03/25/2013 Overview (02/23/2017): Hypertension Assessment & Plan (11/26/2021 8:19 AM PHOTOENGRAVING PRINTER): Stable; continue atenolol without change. Assessment & [...] (H) 11/05/2020 The 10-year ASCVD risk score (Merlinbrendan LANE Jr., et al., 2013) is: 8% [...] SARS-CoV-2 Monovalent Vaccination (12+ Yrs) PURPLE 10/12/2021 Social History Tobacco Use Types Packs/Day Years [...] on file Legal Sex Male 4:06 PM PHOTOENGRAVING PRINTER Gender Identity Not on file Sexual Orientation Not on file Last Filed Vital Signs Vital Sign Reading [...] 04/30/2024 8:20 AM CDT Plan of Treatment Not on file Procedures Procedure Name Priority Date/Time Associated Diagnosis Comments COLONOSCOPY 04/30/2024 8:33 AM CDT PSA SCREEN Routine 09/09/2019 10:38 AM CDT Prostate cancer screening from Last 3 Months or Most Recently Relevant to Health Maintenance Results * Colonoscopy (04/30/2024 8:33 AM CDT) Anatomical Region Laterality Modality Other Narrative Procedure Note Fely Ramirez MD - 04/30/2024 8:33 AM CDT [facility] Patient Name: Kenyatta Villela Procedure Date: 04/30/2024 8:33 AM Date of : 1965 Admit Type: Outpatient Age: 58 Gender: Male Attending MD: Fely Ramirez M.D. Room: [facility] ENDOSCOPY ROOM 1 Note Status: Finalized Patient [...] under direct vision. The Pediatric Colonoscope PCF-H190L [id number] was introducedthrough the anus and advanced to [...] 8:33 AM Procedure Code(s): --- Professional --- 40116, Colonoscopy, flexible; diagnostic, including collection of specimen(s) by brushing or washing, when performed (separateprocedure) Diagnosis Code(s): --- Professional --- Z12.11, Encounter for screening for malignant neoplasm of colon K64.8, Other hemorrhoids CPT copyright 2020 [employer]. All rights reserved. The codes documented in this report are preliminary and upon national flatbed truck driver reviewmay be revised to meet current compliance requirements. Recognized by the [employer] for promoting quality in endoscopy Fley Ramirez MD ENDOSCOPY PROCEDURES Final Result * (ABNORMAL) PSA screen (09/09/2019 10:38 AM CDT) PSA-Total 6.30(H) <=3.90 ng/mL DESTIN PADRON Comment: Interpretive Data AGE SEX REFERENCE INTERVAL 0 minutes-150 years Female None 0 minutes-49 years Male None 50-59 years Male 0-3.90 60-69 years Male 0-5.40 70-79 years Male 0-6.20 80-150 years Male 0-6.20 Current interpretive data last revised 2018. Blood specimen (specimen) 09/09/2019 10:38 AM CDT 09/09/2019 5:03 PM CDT Brennon Whatley MD LAB BLOOD ORDERABLES Tamanna naylor Result [facility] [address] [place] [address] from Last 3 Months or Most Recently Relevant to Health Maintenance Insurance [facility] PL[facility] Advance Directives For more information, please contact: [phone] * Full Code (Latest Code Status on File) Date Activated Date Inactivated Comments 04/30/2024 8:09 AM 04/30/2024 3:05 PM * Full Code Date Activated Date Inactivated Comments 04/30/2024 8:09 AM 04/30/2024 8:09 AM Care Teams Farm Implement Mechanic Relationship Specialty Start Date End Date Hnog Landon MD [address] [place] [address] PCP - General Family Medicine 04/19/24
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
--- OUTSIDE RECORDS SUMMARY | 2025-01-13 15:30 | XMS_ITS | Referral Summary ---
Author Organization [facility] [facility] Address [address] [place] [address] Care Team Providers Care Development Director Name Role Phone Unavailable Primary Care Provider Unavailabl e Source Comments [facility],non-owned Affiliates and Associated Physician Practices is amultiple site organization consisting of ambulatory clinics and hospital sitesin [place], [place], [place] and [place]. This disclosure is being madepursuant to the Care Everywhere program and may not contain all information available regarding this patient. Last updated 18.[facility] Allergies No known active allergies Medications * Be aware that medications may not be up to date on this document. Alwaysverify current medications with the patient. Medication Sig Dispensed Refills Start Date End Date Status atenolol (TENORMIN) 50 MG tablet Take 50 mg by mouth 2 times daily. Active aspirin EC (ECOTRIN) 81 MG tablet Take 81 mg by mouth once daily. Active ibuprofen (MOTRIN) 800 MG tablet Take 1 Tab by mouth 3 times daily as needed for Pain. 20 Tab 0 03/12/2013 Active hydrocodone-acetaminop hen (NORCO) 5-325 MG tablet Take 1 Tab by mouth every 4 hours as needed for Pain. 20 Tab 0 03/12/2013 Active Social History Tobacco Use Types Packs/Day Years [...] Mass Index 34.69 03/12/2013 11:24 AM CDT Plan of Treatment Not on file [id number] [employer] Workers Comp Employer 1965 [address] [place] [address]
--- OUTSIDE RECORDS SUMMARY | 2025-01-13 15:30 | XMS_ITS | Clinical Summary ---
Author Organization [facility] Address [address] [place] [address] Care Team Providers Care Vision Mixer Name Role Phone Lori Jules NP Primary Care Provider [phone] Allergies No known active allergies Medications atorvastatin (LIPITOR) 20 MG tabletIndications: Mixed hyperlipidemia Take 1 tablet (20 mg total) by mouth daily. 90 tablet 1 5 Active atenolol (TENORMIN) 50 MG tabletIndications: Benign essential hypertension Take 1 tablet (50 mg total) by mouth 2 (two) times daily. 90 tablet 1 5 Active atorvastatin (LIPITOR) 20 MG tablet Take 1 tablet (20 mg total) by mouth daily. 5 01/09/20 25 Discontinu ed(Reorder ) atenolol (TENORMIN) 50 MG tablet Take 1 tablet (50 mg total) by mouth 2 (two) times daily. 01/09/20 25 Discontinu ed(Reorder ) Active Problems Problem Noted Date Diagnosed Date History of prostatectomy 01/09/2025 History of prostate cancer 01/09/2025 Mixed hyperlipidemia 01/09/2025 Benign essential hypertension 01/09/2025 History of thyroid nodule 01/09/2025 Urinary urgency 01/09/2025 Encounters Date Type Department Care Team Description 01/09/2025 8:20 AM DISEASE CASE MANAGER Office Visit [facility] - [address] [place] [address] Lori Jules NP New Patient 01/09/2025 Travel from Last 3 Months Immunizations Name Administration Dates Next Due Influenza (Generic) 08/20/2021,09/17/2014 Influenza Adult (Generic) 11/04/2020,09/09/2019 DAMIEN (KUSUM & KUSUM) COVID-19 AD26 VACCINE 0.5 ML IM SUSP 02/18/2021 Shingrix 01/09/2025 Tdap (Adacel) 01/09/2025 Family History Medical History Relation Comments Cancer Brother Prostate cancer Hypertension Brother Heart Disease Father I'd have a heart attack at 41, smoker Alzheimer's disease Mother Arthritis Mother Asthma Son Relation Status Comments Brother Father Mother Son Social History Tobacco Use Types Packs/Day Years Used Date Smoking Tobacco: Never Passive Smoke Exposure: Never Smokeless Tobacco: Never Tobacco Cessation:Counseling Given: No Alcohol Use Standard Drinks/Week Comments Yes 1.7 (1 standard drink = 0.6 oz p ure alcohol) Sex and Gender Information Value Date Recorded Sex Assigned at Male 01/09/2025 8:32 AM DISEASE CASE MANAGER Legal Sex Male 9:49 AM DISEASE CASE MANAGER Gender Identity Male 01/09/2025 8:32 AM DISEASE CASE MANAGER Sexual Orientation Straight 01/09/2025 8: 32 AM DISEASE CASE MANAGER Last Filed Vital Signs Vital Sign Reading Time Taken Comments Blood Pressure 133/89 01/09/2025 8:32 AM DISEASE CASE MANAGER Pulse 58 01/09/2025 8:32 AM DISEASE CASE MANAGER Temperature 36.7 C (98.1 F) 01/09/2025 8:32 AM DISEASE CASE MANAGER Respiratory Rate 18 01/09/2025 8:32 AM DISEASE CASE MANAGER Oxygen Saturation 97% 01/09/2025 8:32 AM DISEASE CASE MANAGER Inhaled Oxygen Concentration - - Weight 131.1 kg (289 lb) 01/09/2025 8:32 AM DISEASE CASE MANAGER Height 193 cm (6' 4 ) 01/09/2025 8:32 AM DISEASE CASE MANAGER Body Mass Index 35.18 01/09/2025 8:32 AM DISEASE CASE MANAGER Plan of Treatment Upcoming Encounters Date Type Department Care Team (Late st Contact Info) Description 06/05/2025 8:00 AM CDT Office Visit [facility] - [place] [address] [place] [address] Lori Jules, CECIL [address] [place] [address] Health Maintenance Due Date Last Done Comments Colorectal Cancer Screening Colonoscopy (10 Years) 1965 Annual Physical 1967 Hepatitis C 1982 COVID-19 Vaccine ( season) 2024 10/12/2021, 02/18/2021, 01/26/2021 Influenza Adult (#1) 2024 08/20/2021, 11/04/2020, 09/09/2019, Additional history exists PHQ-2 (Physician [place]) 11/20/2024 Zoster Vaccines (2 of 2) 03/06/2025 01/09/2025 DTaP, Tdap and Td Vaccines (2 - Td or Tdap) 01/09/2035 01/09/2025 RSV Immunization or 60+ Years (1 - 1-dose 75+ series) 2039 Meningococcal B Vaccine Aged Out No l onger eligible based on patient's age to complete this topic Meningococcal Vaccine Aged Out No filipe quang eligible based on patient's age to complete this topic Pneumococcal Vaccine: Pediatrics (0 to 5 Years) and At-Risk Patients (6 to 64 Years) Aged Out No longer eligible based on patient's age to complete this topic RSV Immunizations Under 20 Months Aged Out No longer eligible based on patient's age to complete this topic Insurance [facility] Care Teams Vision Mixer Relationship Specialty Start Date End Date Lori Jules, FINANCIAL SUPERVISOR [address] [place] [address] PCP - General NURSE PRACTITIONER 12/20/24
--- OUTSIDE RECORDS SUMMARY | 2025-01-13 15:30 | XMS_ITS | Clinical Summary ---
Author Organization [facility] [employer] Address [address] [place] [address] Care Team Providers Care Acid Painter Name Role Phone Unavailable Primary Care Provider Unavailabl e Source Comments [facility],non-owned Affiliates and Associated Physician Practices is amultiple site organization consisting of ambulatory clinics and hospital sitesin [place], [place], [place] and [place]. This disclosure is being madepursuant to the Care Everywhere program and may not contain all information available regarding this patient. Last updated 18.[facility] [employer] Allergies No known active allergies Medications * [...] 03/12/2013 11:24 AM CDT Plan of Treatment Health Maintenance Due Date Last Done Comments COLOGUARD (AGES 45-75) - COL ON CA SCREENING 1965 COLON MONITORING 1965 COLONOSCOPY - COLON CA SCREENING 1964 CT COLONOGRAPHY - COLON CA SCREENING 1965 Colorectal Cancer Screening 1965 FIT - COLON CA SCREENING 1964 FLEX SIG - COLON CA SCREENING 1964 LIPID TESTING 1964 HIV SCREENING 1979 HEPATITIS C SCREENING 06/27/1982 DTAP/TDAP/TD VACCINES (1 - Tdap) 1983 PNEUMOCOCCAL VACCINE 50+ (1 of 1 - PCV) 2014 ZOSTER VACCINE (1 of 2) 2014 COVID-19 VACCINE ( - 2023-2 5 season) 2024 INFLUENZA VACCINE (#1) 2024 DEPRESSION SCREENING 11/20/2024 Respiratory Syncytial Virus (RSV) Vaccine Pt: or over 60 yrs (1 - 1-dose 75+ series) 2039 HEPATITIS B VACCINE Aged Out No longe r eligible based on patient's age to complete this topic HIB VACCINE Aged Out No longer eligi ble based on patient's age to complete this topic HPV VACCINE Aged Out No longer eligi ble based on patient's age to complete this topic MENINGOCOCCAL (Group B) VACCINE Aged Out No longer eligible based on patient's age to complete this topic MENINGOCOCCAL VACCINE Aged Out No filipe quang eligible based on patient's age to complete this topic PNEUMOCOCCAL VACCINE Aged Out No long er eligible based on patient's age to complete this topic [id number] [employer] Workers Comp Employer 1965 [address] [place] [address]
[2025-01-13 17:35] VITALS: BP 135/90; PULSE 64; RESP 18; O2SAT 98
[2025-01-13 17:42] LABS: Add Urine Microscopic? NO; Appearance Urine Clear (Clear); Bilirubin Urine Negative (Negative); Blood Urine Negative (Negative); Color Urine Yellow (Yellow); Glucose Urine UA Negative (Negative); Ketones Urine Negative (Negative); Leukocyte Esterase Ur Negative LEU/UL (Negative); Nitrate Urine Negative (Negative); Protein Urine Negative (Negative); Specific Grav Ur > 1.045 (1.001-1.035); Urobilinogen Urine 0.2 mg/dL (<2.0)
--- OUTSIDE RECORDS SUMMARY | 2025-01-13 18:04 | XMS_ITS | Continuity of Care Document ---
Author Organization [facility] Address [address] [place] [address] Phone Care Team Providers Care Dyer Helper Name Role Phone No Information Unavailable Unavailable Allergies, Adverse Reactions, Alerts Substance Reaction Status Criticality No Known Allergies Active No Inform ation Procedures Procedure Date X-ray exam scapula complete X-ray exam shoulder minimun 2 views Office consultation, [facility] 3 Advance Directives Directive Yes / No Effective Date File Name No Information Encounters Encounter Description Practice Location Reason(s) For Visit Diagnoses Date Provider Providers Copied on Encounter [facility], [address], [id number], tel:[phone] No Information 3 No Information Office consultation, [facility], [address] [place] [address], [id number], tel:[phone] [facility] JOINT PAIN-SHLDER 3 Judi [place]. [address], [address], [place], [place], [address], [place]. tel:[phone] Family History Family Member Type Diagnosis Age At Onset No Information Payers Payer name Insurance type Covered democrat ID Authoriza gomez(s) Chan [id number] Social History Type Description Quantity Date Captured Comments Sex Male Smoking Status No Information Chief Complaint And Reason For Visit No Information Reason For Referral Reason For Referral No Information Plan Of Treatment Date Type Action Status Referral Ordered: X-ray exam shoulder minimun 2 views Right ordered Referral Ordered: X-ray exam scapula complete Right ordered History Of Present Illness Encounter Date Complaint History Of Prese nt Illness No Information Functional Status Date Functional Assessmen t No Information Instructions Date Instruction Additional Infor mation No Information Assessments Type Assessment Date No Information Patient Care Teams Name Effective Dates (start - stop) Status Members No Information
--- OUTSIDE RECORDS SUMMARY | 2025-01-13 18:04 | XMS_ITS | Referral Summary ---
Author Organization [facility] [address] [facility] Address [address] [place] [address] Care Team Providers Care Acid Operator Name Role Phone Hong Landon MD Primary Care Provider [phone] Allergies No known active allergies Medications fluticasone [...] (05/13/2022 7:09 PM CDT): Awaiting results from [place] re: abnormal CT chest. Discussed possible PET scan pending results from [place]. Verified contact # for call back once fax/information rec'd. Lytic lesion of bone on x-ray 05/13/2022 Assessment & Plan (05/13/2022 7:09 PM CDT): Awaiting results from [place] re: abnormal CT chest. Discussed possible PET scan pending results from [place]. Verified contact # for call back once fax/information rec'd. Mixed hyperlipidemia 11/26/2021 Assessment & Plan (11/26/2021 8:43 AM PROCESS DEVELOPMENT MANAGER): 06/2021 TC 210 TRG 46 HDL 54 [...] activity. Assessment & Plan (11/26/2021 8:41 AM PROCESS DEVELOPMENT MANAGER): Discussed healthy diet and importance of regular physical activity. Assessment & Plan (07/05/2021 5:53 PM CDT): Discussed healthy diet and importance of regular physical activity. Hypertension 03/25/2013 Overview (02/23/2017): Hypertension Assessment & Plan (11/26/2021 8:19 AM PROCESS DEVELOPMENT MANAGER): Stable; continue atenolol without change. Assessment & [...] on file Legal Sex Male 4:06 PM PROCESS DEVELOPMENT MANAGER Gender Identity Not on file Sexual Orientation [...] MD - 04/30/2024 8:33 AM CDT [facility] Patient Name: Kenyatta Villela Procedure Date: 04/30/2024 8:33 AM Date of : 1965 Admit Type: Outpatient Age: 58 Gender: Male Attending MD: Fely Ramirez M.D. Room: [facility] ENDOSCOPY ROOM 1 Note Status: Finalized Patient [...] under direct vision. The Pediatric Colonoscope PCF-H190L [id number] was introducedthrough the anus and advanced to [...] 8:33 AM Procedure Code(s): --- Professional --- 48419, Colonoscopy, flexible; diagnostic, including collection of specimen(s) by brushing or washing, when performed (separateprocedure) Diagnosis Code(s): --- Professional --- Z12.11, Encounter for screening for malignant neoplasm of colon K64.8, Other hemorrhoids CPT copyright 2020 [employer]. All rights reserved. The codes documented in this report are preliminary and upon senior communications engineer reviewmay be revised to meet current compliance requirements. Recognized by the [employer] for promoting quality [...] MD LAB BLOOD ORDERABLES Tamanna naylor Result [facility] [address] [place] [address] from Last 3 Months or Most Recently Relevant to Health Maintenance Insurance [facility] CHOICE PLUS Advance Directives For more information, please contact: [phone] * Full Code (Latest Code Status on File) Date Activated Date Inactivated Comments 04/30/2024 8:09 AM 04/30/2024 3:05 PM * Full Code Date Activated Date Inactivated Comments 04/30/2024 8:09 AM 04/30/2024 8:09 AM Care Teams Acid Operator Relationship Specialty Start Date End Date Hong Landon MD [address] [place] [address] PCP - General Family Medicine 04/19/24
--- OUTSIDE RECORDS SUMMARY | 2025-01-13 18:04 | XMS_ITS | Continuity of Care Document ---
Author Organization [facility] Address [address] [place] [address] [address] [place] [address] Phone Care Team Providers Care Maid Housekeeper Name Role Phone Tee MURGUIAR/L, Devante Unavailable Unavailab le Procedures Procedure Date WORK COND/WORK HARD RE EVAL WORK CONDITIONING INITIAL 2 HOURS WORK CONDITIONING INITIAL 2 HOURS WORK CONDITIONING ADD'L HRS WORK CONDITIONING INITIAL 2 HOURS WORK CONDITIONING ADD'L HRS WORK CONDITIONING INITIAL 2 HOURS -2013 WORK CONDITIONING ADD'L HRS -2013 WORK CONDITIONING INITIAL 2 HOURS -2013 WORK CONDITIONING ADD'L HRS -2013 WORK CONDITIONING INITIAL 2 HOURS -2013 WORK CONDITIONING ADD'L HRS WORK COND/WORK HARD EVAL WORK CONDITIONING INITIAL 2 HOURS PT RE-EVALUATION THERAPEUTIC EXERCISES FUNC ACTIVITY 15 MIN THERAPEUTIC EXERCISES FUNC ACTIVITY 15 MIN THERAPEUTIC EXERCISES FUNC ACTIVITY 15 MIN THERAPEUTIC EXERCISES FUNC ACTIVITY 15 MIN THERAPEUTIC EXERCISES FUNC ACTIVITY 15 MIN Theraband, per yard PT EVALUATION THERAPEUTIC EXERCISES FUNC ACTIVITY 15 MIN THERAPEUTIC EXERCISES MANUAL THERAPY HOT/COLD PACK ELECTRIC STIMULATION UNATT PT RE-EVALUATION THERAPEUTIC EXERCISES MANUAL THERAPY HOT/COLD PACK ELECTRIC STIMULATION UNATT THERAPEUTIC EXERCISES MANUAL THERAPY HOT/COLD PACK ELECTRIC STIMULATION UNATT THERAPEUTIC EXERCISES MANUAL THERAPY HOT/COLD PACK ELECTRIC STIMULATION UNATT THERAPEUTIC EXERCISES MANUAL THERAPY HOT/COLD PACK ELECTRIC STIMULATION UNATT PT EVALUATION MANUAL THERAPY HOT/COLD PACK ELECTRIC STIMULATION UNATT THERAPEUTIC EXERCISES NEUROMUSCULAR RE-ED FUNC ACTIVITY 15 MIN PT RE-EVALUATION THERAPEUTIC EXERCISES NEUROMUSCULAR RE-ED FUNC ACTIVITY 15 MIN THERAPEUTIC EXERCISES NEUROMUSCULAR RE-ED FUNC ACTIVITY 15 MIN THERAPEUTIC EXERCISES NEUROMUSCULAR RE-ED FUNC ACTIVITY 15 MIN THERAPEUTIC EXERCISES NEUROMUSCULAR RE-ED FUNC ACTIVITY 15 MIN THERAPEUTIC EXERCISES NEUROMUSCULAR RE-ED FUNC ACTIVITY 15 MIN THERAPEUTIC EXERCISES NEUROMUSCULAR RE-ED FUNC ACTIVITY 15 MIN THERAPEUTIC EXERCISES NEUROMUSCULAR RE-ED FUNC ACTIVITY 15 MIN THERAPEUTIC EXERCISES NEUROMUSCULAR RE-ED FUNC ACTIVITY 15 MIN PT RE-EVALUATION THERAPEUTIC EXERCISES NEUROMUSCULAR RE-ED FUNC ACTIVITY 15 MIN THERAPEUTIC EXERCISES NEUROMUSCULAR RE-ED FUNC ACTIVITY 15 MIN THERAPEUTIC EXERCISES NEUROMUSCULAR RE-ED FUNC ACTIVITY 15 MIN THERAPEUTIC EXERCISES NEUROMUSCULAR RE-ED FUNC ACTIVITY 15 MIN THERAPEUTIC EXERCISES NEUROMUSCULAR RE-ED FUNC ACTIVITY 15 MIN THERAPEUTIC EXERCISES NEUROMUSCULAR RE-ED FUNC ACTIVITY 15 MIN PT EVALUATION THERAPEUTIC EXERCISES NEUROMUSCULAR RE-ED Advance Directives Directive Yes / No Effective Date File Name No Information Encounters Encounter Description Practice Location Reason(s) For Visit Diagnoses Date Provider Providers Copied on Encounter [facility] [address], [place], [place], [id number], tel:[phone] [place] No Information 4 Tee Low. [address] [place] [address], [facility] [address], [place], [facility], . tel:[phone] Referring Provider: Skip Oakley [address], [place], [address]. tel:[phone] [facility] [address], [place], [place], [address], tel:[phone] [place] No Information 4 Tee Low. [address] [place] [address], [facility] [address], [place], [facility], . tel:[phone] Referring Provider: Skip Oakley, [address], [place], [address]. tel:[phone] [facility] [address], [place], [place], [id number], tel:[phone] [place] No Information 4 Tee Low. [address] [place] [address], [address], [place], [facility], . tel:[phone] Referring Provider: Skip Oakley [address], [place], [address]. tel:[phone] [facility] [address], [place], [place], [id number], [place] tel:[phone] [place] No Information Mar-1 8-201 4 Pelletier Sher. [address] [place] [address], [address], [place], [place], [facility], [place]. tel:[phone] Referring Provider: Skip Oakley, [address], [place], [address]. tel:[phone] [address], [place], [place], [address], tel:[phone] [place] No Information Mar-1 4-201 4 Prabhu Olivarez. [address] [place] [address], [address], [place], [address], [place]. tel:[phone] Referring Provider: Skip Oakley, [address], [place], [address]. tel:[phone] [address], [place], [place], [address], [place] tel:[phone] [place] No Information Mar-1 3-201 4 Tricia Sandy. [address] [place] [address], [address], [place], [address], [place]. tel:[phone] Referring Provider: Skip Oakley, [address], [place], [address]. tel:[phone] [address], [place], [place], [id number], [place] tel:[phone] [place] No Information Mar-1 1-201 4 Tricia Sandy. [address] [place] [address], [address], [place], [address], [place]. tel:[phone] Referring Provider: Skip Oakley [address], [place], [address]. tel:[phone] [address], [place], [place], [address], [place] tel:[phone] [place] No Information Mar-0 3-201 4 Jovani Dietrich. [address] [place] [address], [address], [place], [address], [place]. tel:[phone] Referring Provider: Skip Oakley, [address], [place], [address]. tel:[phone] [address], [place], [place], [address], tel:[phone] [place] No Information 4 Jovani Karlo. [address] [place] [address], [address], [place], [place], [facility], . tel:[phone] Referring Provider: Skip Oakley, [address], [place], [address]. tel:[phone] [address], [place], [place], [address], tel:[phone] [place] No Information 4 Jovani Karlo. [address] [place] [address], [address], [place], [place], [facility], . tel:[phone] Referring Provider: Skip Oakley, [address], [place], [address]. tel:[phone] [address], [place], [place], [address], tel:[phone] [place] No Information 4 Jovani Karlo. [address] [place] [address], [address], [place], [place], [facility], . tel:[phone] Referring Provider: Skip Oakley, [address], [place], [address]. tel:[phone] [address], [place], [place], [address], [place] tel:[phone] [place] No Information 4 Jovani Karlo. [address] [place] [address], [address], [place], [place], [facility], . tel:[phone] Referring Provider: Skip Okaley, [address], [place], [address]. tel:[phone], [place], [place], [address], tel:[phone] [place] No Information 3 4 Jovani Karlo. [address] [place] [address], [address], [place], [facility], . tel:[phone] Referring Provider: Skip Oakley, [address], [place], [address]. tel:[phone] [address], [place], [place], [address], [place] tel:[phone] [place] No Information Dec-0 3 Jovani Karlo. [address] [place] [address], [address], [place], [facility], . tel:[phone] Referring Provider: Skip Oakley, [address], [place], [address]. tel:[phone] [address], [place], [place], [address], tel:[phone] [place] No Information Oct-0 6 3 Jovani Karlo. [address] [place] [address], [address], [place], [facility], . tel:[phone] Referring Provider: Skip Oakely, [address], [place], [address]. tel:[phone] [address], [place], [place], [address], [place] tel:[phone] [place] No Information Dec-0 3201 3 Jovani Karlo. [address] [place] [address], [address], [place], [place], [facility], [place]. tel:[phone] Referring Provider: Skip Oakley, [address], [place], [address]. tel:[phone], [place], [place], [id number], [place] tel:[phone] [place] No Information Nov-2 9-201 3 Jimmie Suni. . Referring Provider: Skip Oakley, [address], [place], [address]. tel:[phone] [address], [place], [place], [address], tel:[phone] [place] No Information 3 Jovani Karlo. [address] [place] [address], [address], [place], [facility], [place]. tel:[phone] Referring Provider: Skip Oakley, [address], [place], [address]. tel:[phone] [address], [place], [place], [address], tel:[phone] [place] Cervicalgia 3 Jovani Karlo. [address] [place] [address], [address], [place], [facility], [place]. tel:[phone] Referring Provider: Skip Oakley, [address], [place], [address]. tel:[phone] [address], [place], [place], [address], tel:[phone] [place] No Information 3 Jovani Karlo. [address] [place] [address], [address], [place], [facility], [place]. tel:[phone] [address], [place], [place], [address], tel:[phone] [place] No Information 0 3 Jovani Karlo. [address] [place] [address], [address], [place], [facility], [place]. tel:[phone] [facility] [address], [place], [place], [address], tel:[phone] [place] No Information 3 Jovani Karlo. [address] [place] [address], [address], [place], [address], [place]. tel:[phone] [facility], [facility] [address], [place], [place], [address], [place] tel:[phone] [place] No Information 2 3 Jovani Karlo. [address] [place] [address], [address], [place], [address], [place]. tel:[phone] [place] [address] [facility] [address], [place], [place], [address], [place] tel:[phone] [place] No Information 3 Jovani Karlo. [address] [place] [address], [address], [place], [address], [place]. tel:[phone] [place] [address], [facility] [address], [place], [place], [address], [place] tel:[phone] [place] No Information 3 Jovani Karlo. [address] [place] [address], [address], [place], [address], [place]. tel:[phone] [place] [address], [facility] [address], [place], [place], [address], [place] tel:[phone] [place] No Information 2 3 Jovani Karlo. [address] [place] [address], [address], [place], [address], [place]. tel:[phone] [place] [address] [address], [place], [place], [address], [place] tel:[phone] [place] No Information Jun-0 7-201 3 Jovani Karlo. [address] [place] [address], [address], [place], [address], [place]. tel:[phone] [place] [address] [facility] [address], [place], [place], [address], [place] tel:[phone] [place] No Information 0 5-201 3 Jovani Karlo. [address] [place] [address], [address], [place], [address], [place]. tel:[phone] [place] [address] [address], [place], [place], [address], [place] tel:[phone] [place] No Information 3 Jovani Karlo. [address] [place] [address], [address], [place], [address], [place]. tel:[phone] [place] [address], [address], [place], [place], [address], [place] tel:[phone] [place] No Information 3 Jovani Karlo. [address] [place] [address], [address], [place], [address], [place]. tel:[phone] [place] [address], [address], [place], [place], [address], [place] tel:[phone] [place] No Information 3 Jovani Karlo. [address] [place] [address], [address], [place], [address], [place]. tel:[phone] [place] [address], [address], [place], [place], [address], [place] tel:[phone] [place] No Information 3 Jovani Karlo. [address] [place] [address], [address], [place], [address], [place]. tel:[phone] [place] [address] [address], [place], [place], [address], [place] tel:[phone] [place] No Information 3 Jovani Karlo. [address] [place] [address], [address], [place], [address], [place]. tel:[phone] [place] [address] [address], [place], [place], [address], [place] tel:[phone] [place] Postconcussion syndrome 3 Jovani Karlo. [address] [place] [address], [address], [place], [address], [place]. tel:[phone] [place] [address] [address], [place], [place], [address], [place] tel:[phone] [facility] coordinationAb normality of gait 3 Jovani Dietrich. [address] [facility], [address], [place], [address], [place]. tel:[phone] Family History Family Member Type Diagnosis Age At Onset No Information Payers Payer name Insurance type Covered constitution party ID Authoriza tion(s) No Information Social History Type Description Quantity Date Captured Comments Sex Male Smoking Status No Information Chief Complaint And Reason For Visit No Information Reason For Referral Reason For Referral No Information History Of Present Illness Encounter Date Complaint History Of Prese nt Illness No Information Functional Status Date Functional Assessmen t No Information Instructions Date Instruction Additional Infor mation No Information Assessments Type Assessment Date No Information Patient Care Teams Name Effective Dates (start - stop) Status Members No Information
--- OUTSIDE RECORDS SUMMARY | 2025-01-13 18:05 | XMS_ITS | Clinical Summary ---
Author Organization [facility] [address] [facility] Address [address] [place] [address] Care Team Providers Care Bioinformatics Software Engineer Name Role Phone Hong Landon MD Primary Care Provider [phone] Allergies No known active allergies Medications fluticasone [...] (05/13/2022 7:09 PM CDT): Awaiting results from [facility] re: abnormal CT chest. Discussed possible PET scan pending results from [facility]. Verified contact # for call back once fax/information rec'd. Lytic lesion of bone on x-ray 05/13/2022 Assessment & Plan (05/13/2022 7:09 PM CDT): Awaiting results from [facility] re: abnormal CT chest. Discussed possible PET scan pending results from [facility]. Verified contact # for call back once fax/information rec'd. Mixed hyperlipidemia 11/26/2021 Assessment & Plan (11/26/2021 8:43 AM ORTHODONTIC LAB TECHNICIAN): 06/2021 TC 210 TRG 46 HDL 54 [...] activity. Assessment & Plan (11/26/2021 8:41 AM ORTHODONTIC LAB TECHNICIAN): Discussed healthy diet and importance of regular physical activity. Assessment & Plan (07/05/2021 5:53 PM CDT): Discussed healthy diet and importance of regular physical activity. Hypertension 03/25/2013 Overview (02/23/2017): Hypertension Assessment & Plan (11/26/2021 8:19 AM ORTHODONTIC LAB TECHNICIAN): Stable; continue atenolol without change. Assessment & [...] on file Legal Sex Male 4:06 PM ORTHODONTIC LAB TECHNICIAN Gender Identity Not on file Sexual Orientation [...] Male Attending MD: Fely Ramirez M.D. Room: [facility] ENDOSCOPY ROOM 1 Note Status: Finalized Patient [...] under direct vision. The Pediatric Colonoscope PCF-H190L [id number] was introducedthrough the anus and advanced to [...] 8:33 AM Procedure Code(s): --- Professional --- 85959, Colonoscopy, flexible; diagnostic, including collection of specimen(s) by brushing or washing, when performed (separateprocedure) Diagnosis Code(s): --- Professional --- Z12.11, Encounter for screening for malignant neoplasm of colon K64.8, Other hemorrhoids CPT copyright 2020 [employer]. All rights reserved. The codes documented in this report are preliminary and upon supervisor carding reviewmay be revised to meet current compliance requirements. Recognized by the [employer] for promoting quality [...] ORDERABLES Tamanna naylor Result Performing Organization Address City/State/[facility] Co de Phone Number [facility] [address] [place] [address] from Last 3 Months or Most Recently Relevant to Health Maintenance Insurance [facility] CHOICE PLUS Advance Directives For more information, please contact: [phone] * Full Code (Latest Code Status on File) Date Activated Date Inactivated Comments 04/30/2024 8:09 AM 04/30/2024 3:05 PM * Full Code Date Activated Date Inactivated Comments 04/30/2024 8:09 AM 04/30/2024 8:09 AM Care Teams Bioinformatics Software Engineer Relationship Specialty Start Date End Date Hong Landon MD [address] [place] [address] PCP - General Family Medicine 04/19/24
--- OUTSIDE RECORDS SUMMARY | 2025-01-13 18:05 | XMS_ITS | Clinical Summary ---
Author Organization [facility] [employer] Address [address] [place] [address] Care Team Providers Care Printer Apprentice Name Role Phone Unavailable Primary Care Provider Unavailabl e Source Comments [facility],non-owned Affiliates and Associated Physician Practices is amultiple site organization consisting of ambulatory clinics and hospital sitesin [place], [place], [place] and [place]. This disclosure is being madepursuant to the Care Everywhere program and may not contain all information available regarding this patient. Last updated 18.[facility] [employer] Allergies No known active allergies Medications * [...] on patient's age to complete this topic [id number] [employer] Workers Comp Employer 1965 [address] [place] [address]
--- OUTSIDE RECORDS SUMMARY | 2025-01-13 18:05 | XMS_ITS | Referral Summary ---
Author Organization [facility] [employer] Address [address] [place] [address] Care Team Providers Care Palliative Care Physician Name Role Phone Unavailable Primary Care Provider Unavailabl e Source Comments [facility],non-owned Affiliates and Associated Physician Practices is amultiple site organization consisting of ambulatory clinics and hospital sitesin [place], [place], [place] and [place]. This disclosure is being madepursuant to the Care Everywhere program and may not contain all information available regarding this patient. Last updated 18.[facility] [employer] Allergies No known active allergies Medications * [...] CDT Plan of Treatment Not on file [id number] [employer] Workers Comp Employer 1965 [address] [place] [address]
--- OUTSIDE RECORDS SUMMARY | 2025-01-13 18:05 | XMS_ITS | Continuity of Care Document ---
Author Organization [facility] Address [address] [place] [address] Phone Care Team Providers Care Stripper Machine Operator Name Role Phone Darrel Oakley MD Unavailable Unavailable Allergies, Adverse Reactions, Alerts Substance Reaction Status Criticality No Known allergies Medications Medication Instructions Dosage Effective Dates (start - stop) Status Comments Naprosyn 500 mg tablet take 1 tablet by oral route 2 times every day with food 500 MG - Active Medrol (Joseph) 4 mg tablets in a dose pack Take as directed - Active ETODOLAC (unknown strength) Not Available - Active ATENOLOL (unknown strength) Not Available - Active Procedures Procedure Date OFFICE/OUTPATIENT VISIT EST POSTOP FOLLOW-UP VISIT POSTOP FOLLOW-UP VISIT POSTOP FOLLOW-UP VISIT POSTOP FOLLOW-UP VISIT OFFICE/OUTPATIENT VISIT EST MU Reporting OFFICE/OUTPATIENT VISIT EST MU Reporting OFFICE CONSULTATION Advance Directives Directive Yes / No Effective Date File Name No Information Encounters Encounter Description Practice Location Reason(s) For Visit Diagnoses Date Provider Providers Copied on Encounter [facility], [address], [place], [address], tel:[phone] [facility] No Information 4 Cele Rojo. [address], [place], [id number] . tel:[phone] OFFICE/OUTPAT IENT VISIT EST [facility], [address], [place], [address], [place] tel:[phone] [facility] ObesityDietary surveillance and counselingCervic al Radiculopathy 4 Oakleyyumi Rojo. [address], [place], [place], [id number] . tel: [phone] [facility], [address] [address], [place], [address], [place] tel:[phone] [facility] ObesityDietary surveillance and counselingCervic al Radiculopathy Jan-2 6201 4 Oakley Darrel. [address], [place], [place], [id number] . tel: [phone] [facility], [address] [address], [place], [address], [place] tel:[phone] [facility] ObesityDietary surveillance and counselingCervic al Radiculopathy Jan-0 5 4 Oakley Drarel. [address] , [place], [place], [id number] . tel: [phone] [facility], [address] [address], [place], [address], [place] tel:[phone] [facility] ObesityDietary surveillance and counselingCervic al Radiculopathy 4 Oakleyyumi Rojo. [address] , [place], [place], [id number] . tel: [phone] [facility], [address] [address], [place], [address], [place] tel:[phone] [facility] ObesityDietary surveillance and counselingCervic al Radiculopathy 4 Oakleyyumi Rojo. [address] , [place], [place], [id number] . tel: [phone] [facility], [address] [facility], [place], [address], [place] tel:[phone] [facility] Cervical Radiculopathy 3[address] Cele Rojo. [address] [place], [place], [id number] . tel: [phone] OFFICE/OUTPAT IENT VISIT EST [facility], [address] [address], [place], [place], [facility], tel:[phone] [facility] ObesityDietary surveillance and counselingCervic al Radiculopathy 3 Oakley Darrel. [address] [place], [place], [id number] . tel: [phone] OFFICE/OUTPAT IENT VISIT EST [facility], [address], [address], tel:[phone] [facility] ObesityDietary surveillance and counselingCervic al Radiculopathy 3 Cele Rojo. [address] [facility] [place], [id number] . tel: [phone] OFFICE CONSULTATION [facility], [address] [facility] [address], [facility], tel:[phone] [facility] ObesityDietary surveillance and counselingCervic al RadiculopathyHyp ertension, Unspecified 3 Cele Rojo. [address] [facility] [place], [address] . tel: [phone] Family History Family Member Type Diagnosis Age At Onset Problem (finding) Family history of Heart disease Problem (finding) Family history of hyper tension Payers Payer name Insurance type Covered libertarian ID Authoriza tion(s) No Information Social History Type Description Quantity Date Captured Comments Sex Male Smoking Status No Information Chief Complaint And Reason For Visit No Information Reason For Referral Reason For Referral No Information Plan Of Treatment Date Type Action Status Referral Ordered: MRI SPI CANAL&CNTS CRV C-MATRL Appointment date/timeframe: 10/03/2013 ordered Referral Ordered: RADEX SPI CRV 2/3 VIEWS ordered History Of Present Illness Encounter Date Complaint History Of Prese nt Illness No Information Functional Status Date Functional Assessmen t No Information Instructions Date Instruction Additional Infor mation OTC Medication Activity as tolerated OTC anti-inflammatories (NSAIDs) Dietary counseling Related to Di etary surveillance counseling OTC anti-inflammatories (NSAIDs) Dietary counseling Related to Di etary surveillance counseling OTC Medication Activity as tolerated OTC Medication Activity as tolerated Dietary counseling Related to Di etary surveillance counseling Activity as tolerated Dietary counseling Related to Di etary surveillance counseling OTC Medication Dietary counseling Related to Di etary surveillance counseling OTC Medication Activity as tolerated ambulate as much as possible Dietary counseling Related to Di etary surveillance counseling Dietary counseling Related to Di etary surveillance counseling Continue current medication Activity as tolerated Do not stop meds whe n symptoms resolve Dietary counseling Related to Di etary surveillance counseling Take new medication as prescribe d Activity as tolerated Do not stop meds whe n symptoms resolve Assessments Type Assessment Date No Information Patient Care Teams Name Effective Dates (start - stop) Status Members No Information
--- OUTSIDE RECORDS SUMMARY | 2025-01-13 18:05 | XMS_ITS | Patient Health Summary ---
Author Organization [facility] Address [address] [place] [address] Care Team Providers Care Defect Repairer Glassware Name Role Phone Unavailable Primary Care Provider Unavailabl e Note from [facility],non-owned Affiliates and Associated Physician Practices is amultiple site organization consisting of ambulatory clinics and hospital sitesin [place], [place], [place] and [place]. This disclosure is being madepursuant to the Care Everywhere program and may not contain all information available regarding this patient. Last updated 18.[facility] Allergies No known active allergies Medications * [...] or syntax problems by a trained medical specialist. Findings: The bone window images show fracture [...] or syntax problems by a trained medical specialist. Findings: The bone window images show fracture [...] (Bezet) 404 ms [facility] Calculated P Gardner 31 degrees [facility] Calculated R Gardner 18 degrees [facility] Calculated T Gardner 26 degrees [facility] Interpretation EKG Sinus [...] Johnston DO ECG ORDERABLES Performing Organization Address [facility] Co de Phone Number [facility] * PT PTT PANEL (03/12/2013 11:35 AM CDT) PT 10.6 9.4 - 11.2 sec 03/12/2013 11:54 AM CDT [facility] INR 1.01 0.9 - 1.1 03/12/2013 11:54 AM CDT [facility] PTT 26.1 24.0 - 32.0 sec 03/12/2013 11:54 AM CDT [facility] Blood specimen (specimen) BLOOD SPECIMEN / Unknown 03/12/2013 11:35 AM CDT 03/12/2013 11:37 AM CDT Narrative [facility] - 03/12/2013 11:54 AM CDT Conventional Anticoagulant Therapy INR Reference Ranges: 2.0-3.0 Intensive Anticoagulant Therapy INR Reference Ranges: 2.5-3.5 Lev Johnston DO LAB - COAGULATION OR DERABLES Performing Organization Address City/[facility] Co de Phone Number [facility] [address] [place] [address] * CBC W AUTO DIFFERENTIAL (03/12/2013 11:35 AM CDT) [facility] WBC 7.1 4.4 - 10.7 x10^9/L 03/12/2013 [...] - 416 x10^9/L 03/12/2013 11:50 AM CDT [facility] RDW-CV 14.0 12.1 - 14.9 % 03/12/2013 11:50 AM CDT [facility] Neutrophils % 59 44 - 73 % 03/12/2013 11:50 AM CDT [facility] Lymphocytes % 26 20 - 43 % 03/12/2013 11:50 AM CDT [facility] Monocytes % 11 5 - 13 % 03/12/2013 11:50 AM CDT [facility] Eosinophils % 3 0 - 6 % 03/12/2013 11:50 AM CDT [facility] Basophils % 0 0 - [...] - 0.08 x10^9/L 03/12/2013 11:50 AM CDT [facility] Blood specimen (specimen) BLOOD SPECIMEN / Unknown 03/12/2013 11:35 AM CDT 03/12/2013 11:37 AM CDT Lev Johnston DO LAB - HEMATOLOGY ORD ERABLES [facility] [address] [place] [address] * COMPREHENSIVE METABOLIC PANEL (03/12/2013 11:35 AM CDT) Glucose 96 74 - 106 mg/dL 03/12/2013 11:55 AM CDT [facility] Sodium 142 136 - 145 mmol/L 03/12/2013 11:55 AM CDT [facility] Potassium 4.4 3.5 - 5.1 mmol/L 03/12/2013 11:55 AM CDT [facility] Chloride 107 98 - 107 mmol/L 03/12/2013 11:55 AM CDT [facility] CO2 28 22 - 31 mmol/L 03/12/2013 11:55 AM CDT [facility] Calcium 8.6 8.5 - 10.1 mg/dL 03/12/2013 11:55 AM CDT [facility] Anion Gap 7 5 - 15 mmol/L 03/12/2013 11:55 AM CDT [facility] BUN 17 7 - 21 mg/dL 03/12/2013 11:55 AM CDT [facility] Creatinine 1.10 0.50 - 1.30 mg/dL 03/12/2013 11:55 AM CDT [facility] eGFR by MDRD >60 >60 ml/min/1.7 3m2 03/12/2013 11:55 AM CDT [facility] eGFR by MDRD >60 >60 ml/min/1.7 3m2 03/12/2013 11:55 AM CDT [facility] Alkaline Phosphatase 68 38 - 126 U/L 03/12/2013 11:55 AM CDT [facility] ALT 25 12 - 78 U/L 03/12/2013 11:55 AM CDT [facility] AST 13 5 - 40 U/L 03/12/2013 11:55 AM CDT [facility] Protein Total 7.3 6.4 - 8.2 gm/dL 03/12/2013 11:55 AM CDT [facility] Albumin 3.9 3.4 - 5.0 gm/dL 03/12/2013 11:55 AM CDT [facility] Bilirubin Total 0.7 0.2 - 1.0 mg/dL 03/12/2013 11:55 AM CDT [facility] Blood specimen (specimen) BLOOD SPECIMEN / Unknown 03/12/2013 11:35 AM CDT 03/12/2013 11:37 AM CDT Lev Johnston DO LAB - CHEMISTRY SHASHA SUBRAMANIAN [facility] Organization Address City/State/ZIP Co de Phone Number [facility] [address] [place] [address] * XR CHEST 1VW PORTABLE (03/12/2013 11:30 [...]
--- OUTSIDE RECORDS SUMMARY | 2025-01-13 18:05 | XMS_ITS | Clinical Summary ---
Author Organization [facility] Address [address] [place] [address] Care Team Providers Care [employer] Weapons Sergeant Name Role Phone Lori Jules NP Primary Care Provider [phone] Allergies No known active allergies Medications atorvastatin [...] Department Care Team Description 01/09/2025 8:20 AM NEUROLOGY MANAGER Office Visit [facility] - [address] [place] [address] Lori Jules NP New Patient 01/09/2025 Travel [...] Sex Assigned at Male 01/09/2025 8:32 AM NEUROLOGY MANAGER Legal Sex Male 9:49 AM NEUROLOGY MANAGER Gender Identity Male 01/09/2025 8:32 AM NEUROLOGY MANAGER Sexual Orientation Straight 01/09/2025 8: 32 AM NEUROLOGY MANAGER Last Filed Vital Signs Vital Sign Reading Time Taken Comments Blood Pressure 133/89 01/09/2025 8:32 AM NEUROLOGY MANAGER Pulse 58 01/09/2025 8:32 AM NEUROLOGY MANAGER Temperature 36.7 C (98.1 F) 01/09/2025 8:32 AM NEUROLOGY MANAGER Respiratory Rate 18 01/09/2025 8:32 AM NEUROLOGY MANAGER Oxygen Saturation 97% 01/09/2025 8:32 AM NEUROLOGY MANAGER Inhaled Oxygen Concentration - - Weight 131.1 kg (289 lb) 01/09/2025 8:32 AM NEUROLOGY MANAGER Height 193 cm (6' 4 ) 01/09/2025 8:32 AM NEUROLOGY MANAGER Body Mass Index 35.18 01/09/2025 8:32 AM NEUROLOGY MANAGER Plan of Treatment Upcoming Encounters Date Type Department Care Team (Late st Contact Info) Description 06/05/2025 8:00 AM CDT Office Visit [facility] - [place] [address] [place] [address] Lori Jules, CECIL [address] [place] [address] Health Maintenance Due Date Last Done Comments Colorectal Cancer Screening Colonoscopy (10 Years) 1965 Annual Physical 1967 Hepatitis C 1982 COVID-19 Vaccine ( season) 2024 10/12/2021, 02/18/2021, 01/26/2021 Influenza Adult (#1) 2024 08/20/2021, 11/04/2020, 09/09/2019, Additional history exists PHQ-2 (Physician [place]) 11/20/2024 Zoster Vaccines (2 of 2) 03/06/2025 [...] patient's age to complete this topic Insurance [facility] [place] [address] Care Teams [employer] Forces Weapons Sergeant Relationship Specialty Start Date End Date Lori Jules, BLIND CLEANER [address] [place] [address] PCP - General NURSE PRACTITIONER 12/20/24
== END 2025-01-13 18:55 | disposition home or self-care (01) ==
PROVIDERS: Physician Assistant; Emergency Provider Emergency Medicine; PCP Family Medicine
DX: K40.90 Unilateral inguinal hernia, without obstruction or gangrene, not specified as recurrent (principal); Z85.46 Personal history of malignant neoplasm of prostate; I10 Essential (primary) hypertension; E66.9 Obesity, unspecified; Z68.34 Body mass index [BMI] 34.0-34.9, adult; Z90.79 Acquired absence of other genital organ(s)
CPT/HCPCS: 36415; 74177; 80053; 81003; 85025; 99284; Q9967

== ENCOUNTER 2025-01-16 09:59 | Outpatient (CLI) | payer OTHER, SELFPAY | END 2025-01-16 10:00 | disposition home or self-care (01) | PROVIDERS: PCP Family Medicine; Visit Provider Anesthesiology | DX: Z01.818 Encounter for other preprocedural examination (principal); K40.30 Unilateral inguinal hernia, with obstruction, without gangrene, not specified as recurrent | CPT/HCPCS: 36415; 86850; 86900; 86901; 93005 ==

== ENCOUNTER 2025-01-20 01:21 | Day surgery (SDC) | payer OTHER, SELFPAY ==
[2025-01-15 15:28] VITALS: BMI 34.7
--- NOTE | 2025-01-15 15:30 | PC.NURSE ---
Report to the Outpatient Waiting Room, entrance under the green pavilion located off [facility], at time _0730_ on date _[id number]_. Planned Procedure Time: _0930_.? Time changes happen often and if your time is changed the preop area will call you the afternoon before. - You and your visitor will be asked to self-screen and do not enter if you have any COVID symptoms. Please call surgeon if you need to reschedule. - A mask is optional within the hospital at this time. Patients may have clear liquids (water, carbonated beverages, clear teas, apple juice) until 3 hours prior to surgery with a maximum of 20 ounces. - No food from midnight until time of surgery and no smoking, or chewing tobacco (or any form of nicotine). No chewing gum, candy or mints. Take only the following medications with a SIP of water on the morning of surgery: ____Atenolol___ DO NOT STOP ANY OF YOUR OTHER PRESCRIPTION MEDICATIONS PRIOR TO SURGERY EXCEPT THE FOLLOWING Hold all vitamins and supplements for 3 days per anesthesiologist. Medications to discontinue per physician Date to take last dose Please no make-up, nail guatemalan, hairspray, perfume, deodorant, or body powder the day of surgery.? No jewelry (including any body piercings) or valuables the day of surgery, leave them at home.? Please take a shower or bath the night before, or the morning of, surgery with an antibacterial soap.? Wear comfortable, loose fitting clothing.? - Jewelry must be removed prior to entering the operating room.? Rings and piercings that are not removed may be cut off. - The hospital will not accept responsibility for valuables.? - Please leave all valuables, including medications, at home the day of surgery. If you are going home after surgery, a licensed driver retraining instructor must drive you home.? - NO public transportation without another adult if you receive anesthesia. - We recommend that an adult stay with you for 24 hours following discharge. - We also recommend that you do not drive, make important decision, drink alcoholic beverages, or take any drugs that were not prescribed by your health care provider for at least 24 hours after your discharge time. Follow any additional instructions given to you from your surgeon. Telephone instructions given to __Kenyatta__and asked if any additional questions and then verbalized understanding. Patient advised to call surgeon office or pre surgery nurse liaison [phone] if any additional questions.
[2025-01-20] VITALS (10 sets, daily range): BP systolic 124–149; BP diastolic 69–85; PULSE 59–73; RESP 12–16; TEMP 36.2–37.1; O2SAT 93–97; BMI 34.9
[2025-01-20] MEDS: LACTATED RINGERS 1,000 ML 30 ML IV CONT ×3 (07:30→12:05)
[2025-01-20] MEDS: ACETAMINOPHEN 500 MG TABLET 1000 MG PO (07:39)
[2025-01-20] MEDS: KETOROLAC 15 MG/ML VIAL (*BKC) IV PUSH (07:39)
--- NOTE | 2025-01-20 09:16 | WPDHPUPDATE1 ---
History and Physical Update Update Date/Time: 01/20/25 09:16 History and Physical has been reviewed, including an updated exam of the patient. There are NO changes in the patient's condition. Risks, benefits, and alternatives have been discussed and questions answered. Patient agrees to proceed with procedure.
--- NOTE | 2025-01-20 09:41 | WPDANESEPPF ---
Anes - Initial Pre Proc Eval Procedure: Operation Date: 01/20/25 09:30 Proposed Procedures p Robotic Incarcerated Left Inguinal Hernia Repair with Mesh, Possible Open - Kathleen Gracia MD Date/Time: 01/20/25 09:41 Surgeon: Kathleen Gracia MD Pre Op Diagnosis: Incarcerated Left Inguinal Hernia Patient Data Age: 59 Gender: M Height: 1.93 m Weight: 130.3 kg Last Vital Signs Temp 98.7 F 01/20/25 07:10 Pulse 63 01/20/25 07:10 Resp 16 01/20/25 07:10 BP 124/84 01/20/25 07:10 Pulse Ox 96 01/20/25 07:10 O2 Del Method Room Air 01/20/25 07:10 Allergies Allergy/AdvReac Type Severity Reaction Status Date / Time No Known Allergies Allergy Verified 01/20/25 07:42 Home Medications ?Medication ?Instructions ?Recorded ?Confirmed ?Type atenolol 50 mg tablet 50 mg PO DAILY 09/27/19 01/20/25 History atorvastatin 20 mg tablet 20 mg PO DAILY 07/03/22 01/20/25 History Patient hx anesthesia problems: none Family hx anesthesia problems: none Results Review: All pre-operative results and documents have been reviewed as part of the pre-operative evaluation. [facility] Past Medical History Medical History Thyroid goiter removed from thyroid Nasal fracture Prostate cancer HTN (hypertension) Obesity Surgical History Surgical History History of robot-assisted laparoscopic radical prostatectomy H/O cervical spine surgery H/O rhinoplasty Family History Family History Father Heart disease Hypertension Sibling Hypertension Grandparent Breast cancer Social History Social History Smoking status: Never smoker Alcohol intake: current Drinks per week: 1 Alcohol use details: 3 DRINKS PER MONTH Substance use: never Substance use type: does not use Do You Feel Safe in your Home?: Yes Lack of Transportation: No Lack of Food: Never True Current Housing: I Have Housing Concerned About Future Housing: No Difficulty Paying Gas/Electric Bills: No Difficulty Paying for Meds: No Currently Unemployed: No Education: High School Diploma/GED Difficulty w/ Childcare or Family Care: No Living arrangements: with family Spiritual care concerns: No Anes - Eval Final PreProcedure Day of Procedure 01/20/25 09:41 Patient weight: obese Lungs: normal air movement Airway: Mallampati scale (Upper caps noted. ) class II and special considerations (Prev C spine fusion noted w some limited mobility. ) poor extension Neurological: alert and oriented Last oral intake: >/= 8 hours ASA classification: III Emergent: no Anesthetic plan: proceed Anesthesia type and monitoring: general ETT and standard monitoring Results Review: All pre-operative results and documents have been reviewed as part of the pre-operative evaluation. HTN, hyperlipidemia, BMI 35. Prev C spine surgery noted. Prev GA w glidescope 4 w gr 1 view after failed DL noted (2020 record). Informed Consent: The patient's anesthetic plan and its attendant risks and benefits were discussed with the patient/family/POA. Questions were solicited and answers provided to the satisfaction of the patient/family/POA.
[2025-01-20] MEDS: ceFAZolin 3 GM/D5W 100 ML 100 ML IVPB (10:03)
[2025-01-20] MEDS: BUPIVACAINE/EPINEPHRINE 0.5% 30 ML VIAL INFILTRATE (10:38)
--- NOTE | 2025-01-20 12:01 | W.PM.PROC2 ---
Procedure Note - Detailed Date of Procedure 01/20/25 Pre-op Diagnosis Incarcerated Left Inguinal Hernia Post-op Diagnosis Same Procedure Performed robotic assisted right inguinal hernia repair with mesh Surgeon Kathleen Gracia MD Anesthesia General Indications 59-year-old with large incarcerated left inguinal hernia. Patient reports that he had a lifting injury at work that resulted in the hernia. Hernia has been present for a few weeks. Findings Incarcerated left inguinal hernia with noted sigmoid and small bowel Description of Procedure Patient was brought into the operating room and placed in the supine position. After adequate induction of general anesthesia, the patient was prepped and draped in normal sterile fashion. A time-out was then done to verify the patient's identity, as well as the procedure being performed. Began by making a 8 mm incision in the supraumbilical region, a Veress needle was then placed into the peritoneal cavity. CO2 gas was then insufflated and after adequate pneumoperitoneum was achieved, the Veress needle was removed. I then placed an 8 mm trocar through this incision. I then placed the endoscope through this trocar site and under direct visualization placed 2 further 8 mm ports in the right and left mid abdomen. The [employer] robot was then docked to the 3 trocar sites. I then scrubbed out and went to the robotic console. Upon examining the pelvis, it was noted that the patient had a large left inguinal hernia. The right side was examined and no hernia defect was noted. There was noted to be a large amount of sigmoid colon, as well as small bowel, incarcerated in this large left-sided hernia. Using very careful and gentle dissection, I was slowly able to reduce the contents of the hernia area. Again, this contained a loop of small intestine, as well as a portion of the sigmoid colon. Once reduced, the contents were examined and noted to be viable and pathology free. I began by making a preperitoneal flap approximately 6 cm superior to the defect. Of note, the flap was difficult to create given previous prostatectomy. This was especially true in the medial portion. This flap was carried medially past the umbilical ligaments in laterally to the transversalis. It then began dissection of my medial compartment taking this down to the pubic tubercle. I then began the lateral dissection taking this down to the transversalis fascia. Once these compartments were achieved, I began dissection around the cord structures. A large indirect hernia was noted at this point. Using careful dissection, was able to reduce indirect hernia sac off the cord structures. Once this was adequately done, I went ahead and placed a large piece of 3D Max mesh into the abdominal cavity. The mesh was carefully positioned, centering the center of the mesh over the indirect defect. Once this was done, was very satisfied with our repair. Using 3-0 Vicryl sutures, I tacked the mesh medially to Lex's ligament. Two lateral sutures were placed from the mesh to the transversalis fascia. I then closed the peritoneal flap with a running 2.0 V Lock suture. The abdomen was then desufflated, and all ports were removed. All incisions were then closed with the 4.0 monocryl suture. Dermabond was placed on each wound. The patient tolerated the procedure well, was extubated in the operating room postoperatively, and will now be transferred to the recovery room in stable condition. Implants large 3DMax mesh Estimated Blood Loss 10 Drains No Packing No Pathology None sent Complications No immediate complications Condition Stable Disposition PACU [facility] Billing Surgery - Charge Forward: Surgery Billing
[2025-01-20] MEDS: ONDANSETRON INJ 4 MG/2 ML VIAL IV PUSH (12:35)
[2025-01-20] MEDS: oxyCODONE HCL (*CRX) 5 MG TAB IR PO (13:14)
== END 2025-01-20 15:05 | disposition home or self-care (01) ==
PROVIDERS: PCP Family Medicine; Visit Provider Surgery
PROC: 8E0Y4CZ Robotic Assisted Procedure of Lower Extremity, Percutaneous Endoscopic Approach (ICD-10-PCS; CPT 49650; principal; 2025-01-20 09:30)
DX: K40.30 Unilateral inguinal hernia, with obstruction, without gangrene, not specified as recurrent (principal); I10 Essential (primary) hypertension; E66.9 Obesity, unspecified; Z68.35 Body mass index [BMI] 35.0-35.9, adult; Z98.890 Other specified postprocedural states; Z98.1 Arthrodesis status; Z85.46 Personal history of malignant neoplasm of prostate; Z80.3 Family history of malignant neoplasm of breast; Z82.49 Family history of ischemic heart disease and other diseases of the circulatory system
CPT/HCPCS: 49650; S2900; A9270; C1781; J0690; J1100; J1885; J2003; J2250; J2270; J2405; J2704; J3010; J7120